=== PATIENT | female | born 1975 | race Caucasian/White ===

== ENCOUNTER 2021-12-19 21:23 | Outpatient (REF) | payer OTHER, SELFPAY ==
[2021-12-19 22:41] LABS: Iron* 115 ug/dL (37-170)
[2021-12-19 22:51] LABS: Percent Iron Saturation 40 % (20-50); Total Iron Binding Capacity 285 ug/dL (265-497)
== END 2021-12-19 21:24 | disposition home or self-care (01) ==
LOC: NPINS 21:23
PROVIDERS: PCP Physician Assistant Medical; Visit Provider Psychiatry & Neurology Neurology
DX: G25.81 Restless legs syndrome (principal)
CPT/HCPCS: 82728; 83540; 83550

== ENCOUNTER 2022-11-27 09:45 | Outpatient (RCR) | payer OTHER, SELFPAY | END 2023-03-27 23:59 | disposition home or self-care (01) | PROVIDERS: PCP Physician Assistant Medical; Visit Provider Orthopaedic Surgery Sports Medicine | DX: M17.11 Unilateral primary osteoarthritis, right knee (principal); Z51.89 Encounter for other specified aftercare | CPT/HCPCS: 97110; 97140; 97161 ==

== ENCOUNTER 2022-11-28 08:18 | Outpatient (CLI) | payer OTHER, SELFPAY | END 2022-11-28 08:19 | disposition home or self-care (01) | PROVIDERS: PCP Physician Assistant Medical; Visit Provider Physician Assistant Medical | DX: Z01.818 Encounter for other preprocedural examination (principal); R73.03 Prediabetes; E66.9 Obesity, unspecified; R79.89 Other specified abnormal findings of blood chemistry; Z13.6 Encounter for screening for cardiovascular disorders; Z13.29 Encounter for screening for other suspected endocrine disorder; Z13.1 Encounter for screening for diabetes mellitus | CPT/HCPCS: 80061; 82728; 84443; 84450; 84460 ==

== ENCOUNTER 2023-04-18 14:49 | Outpatient (CLI) | payer OTHER, SELFPAY ==
--- NOTE | 2023-04-18 15:00 | CRLHL7_ITS ---
For Patients: As a result of the Century Cures Act, medical imaging exams and procedure reports are released immediately into your electronic medical record. You may view this report before your referring provider. If you have questions, please contact your health care provider. INDICATION: Pelvic pain COMPARISON: None available. FINDINGS: Transvaginal and transabdominal ultrasound examination of the female pelvis was performed. Initial examination is performed with transabdominal technique and transvaginal technique is used for better visualization of the pelvic structures. The uterus is anteverted with no evidence of mass. It measures 8.0 x 2.6 x 3.1 cm. The uterine myometrium is mildly heterogeneous, consistent with mild diffuse fibroid degeneration. The endometrial lining is normal in thickness at 4 mm. Incidental note is made of nabothian cysts in the cervix. The ovaries are normal in appearance normal appearing follicular cysts. The ovaries are normal in size, the right measuring 2.8 x 2.3 x 2.4 cm and the left measuring 2.8 x 1.7 x 2.0 cm. There is normal color and pulse doppler flow in both ovaries. There is no sign of free fluid in the pelvis. IMPRESSION: Normal ultrasound examination of the female pelvis using transvaginal and transabdominal technique. Dictated by Wing Vasquez MD @ 04/22/2023 10:13:36 PM (Electronically Signed)
== END 2023-04-18 14:50 | disposition home or self-care (01) ==
LOC: US 14:50
PROVIDERS: PCP Physician Assistant Medical; Visit Provider Physician Assistant
DX: R10.2 Pelvic and perineal pain (principal)
CPT/HCPCS: 76830; 76856; 93976

== ENCOUNTER 2023-06-14 07:06 | Outpatient (CLI) | payer OTHER, SELFPAY ==
--- OUTSIDE RECORDS SUMMARY | 2023-06-14 07:09 | XMS_ITS | Encounter Summary ---
Author Name Unknown Organization [facility] Address [address] [place] [address] Care Team Providers Care Rn Immunology Name Role Phone Nyla Longoria RUPALI Primary Care Provider [phone] Reason for Visit * Reason Comments SKIN LESION New spot on the left lower eye/cheek area presented within the last week. It is scaly, denies tender or bleedingHx :BCCRemind pt to check for phone number Encounter Details Date Type Department Care Team Description 04/04/2023 1:30 PM POLYMERIZATION SUPERVISOR Office Visit [facility] [address] [place], [place] [id number] Nannette Rae MD [address] [place] [address] [id number] Neoplasm of skin (HRC) (Primary Dx) Social History Tobacco Use Types Packs/Day Years Used Date Smoking Tobacco: Never Smokeless Tobacco: Never Sex and Gender Information Value Date Recorded Sex Assigned at Not on file Gender Identity Not on file Sexual Orientation Not on file documented as of this encounter Progress Notes * Nannette Rae MD - 04/04/2023 1:30 PM CST Images from the original note were not included. DERMATOLOGY OFFICE VISIT Last visit: 03/26/2023 Dermatologic History: BCC, right forehead, awaiting Mohs BCC, left upper inner cheek, Mohs 2017 History of bullous eruption on the bilateral lower shins, suspect allergic contact dermatitis Angular cheilitis Seborrheic dermatitis, mild Chief Complaint Patient presents with SKIN LESION New spot on the left lower eye/cheek area presented within the last week. It is scaly, denies tender or bleeding Hx :BCC Remind pt to check for phone number History of Present Illness: Aleida Brooke is a 48 y.o. female who presents for a spot of concern today. She was last seen in Dermatology 03/26/2023 at which time we biopsied a BCC on the R lower forehead. Now, she notes a pink scaly bump on the left nasal sidewall/cheek area near her previous BCC site. Past Medical History, Family History: Reviewed and updated in [facility] Medications: The patient has a current medication list which includes the following prescription(s): cetirizine,cholecalciferol, fluorouracil, fluticasone propionate, gabapentin, ketotifen fumarate, ropinirole, and triamcinolone acetonide. Allergies: The patient is allergic to other. Review of Systems: Generally feels well without other skin concerns today. Physical Examination: General: Well-appearing female, in no distress, alert and oriented. Skin: Examination of the left side of nose was preformed today. Pertinent findings as below. Derm Exam, Assessment and Plan: 1. Neoplasm of skin (HRC) Left Malar Cheek Skin Biopsy (No CPT) Type of biopsy: tangential Timeout: patient name, date of , surgical site, and procedure verified Procedure prep: Patient was prepped and draped in usual sterile fashion Prep type: Isopropyl alcohol Anesthesia: the lesion was anesthetized in a standard fashion Anesthetic: 1% lidocaine w/ epinephrine 1-100,000 local infiltration Hemostasis achieved with: electrodesiccation Outcome: patient tolerated procedure well Post-procedure details: wound care instructions given Follow up: Return to clinic pending bx results, sooner for new concerns. Nannette Rae MD [facility] MERIZATION SUPERVISOR documented in this encounter Plan of Treatment Upcoming Encounters Date Type Department Care Team Description 06/26/2023 2:30 PM POLYMERIZATION SUPERVISOR Appointment [facility] [address] [place] [id number] Nurse Kobi Uribe documented as of this encounter Procedures Procedure Name Priority Date/Time Associated Diagnosis Comments SKIN BIOPSY Routine 04/04/2023 1:38 PM POLYMERIZATION SUPERVISOR Neoplasm of skin (HRC) SURGICAL PATHOLOGY, DERMATOLOGY Routine 04/04/2023 1:38 PM POLYMERIZATION SUPERVISOR Neoplasm of skin (HRC) documented in this encounter Results * Skin Biopsy (No CPT) (04/04/2023 1:38 PM POLYMERIZATION SUPERVISOR) Narrative EXTERNAL RESULTS - 04/04/2023 1:38 PM POLYMERIZATION SUPERVISOR Type of biopsy: tangential ?? Timeout: patient name, date of , surgical site, and procedure verified ?? Procedure prep: ??Patient was prepped and draped in usual sterile fashion Prep type: ??Isopropyl alcohol Anesthesia: the lesion was anesthetized in a standard fashion ?? Anesthetic: ??1% lidocaine w/ epinephrine 1-100,000 local infiltration Hemostasis achieved with: electrodesiccation ?? Outcome: patient tolerated procedure well ?? Post-procedure details: wound care instructions given ?? Nannette Rae MD DERM PROCEDURE ORDER C[facility]ACE EXTERNAL RESULTS * Surgical Path, Dermatology (04/04/2023 1:38 PM POLYMERIZATION SUPERVISOR) Case Report Surgical Pathology Report ? Case: [id number] ? Authorizing Provider: ??Nannette Rae MD ? Collected: ? 04/04/2023 1338 ? Ordering Location: ? [facility] ? Received: ?04/05/2023 1319 ? Pathologist: ? Tc Britt, ? MD ? Specimen: ?Skin, Left Malar Cheek ? 04/15/2023 12:46 PM POLYMERIZATION SUPERVISOR [employer] SUR[employer]Y TAKER 3800 DERMATOLOGY FINAL DIAGNOSIS A. Skin, Left Malar Cheek, shave: - Suppurative folliculitis 04/15/2023 12:46 PM POLYMERIZATION SUPERVISOR PUBLIC OPINION SURVEY TAKER 3800 DERMATOLOGY Clinical Information Clinical Impression: r/o BCC 04/15/2023 12:46 PM POLYMERIZATION SUPERVISOR PUBLIC OPINION SURVEY TAKER 3800 DERMATOLOGY Microscopic Description Microscopic examination is performed. 04/15/2023 12:46 PM POLYMERIZATION SUPERVISOR PUBLIC OPINION SURVEY TAKER 3800 DERMATOLOGY Technical Information A portion of the technical [place] [address]. The professional interpretation was performed at [facility]. 04/15/2023 12:46 PM POLYMERIZATION SUPERVISOR PUBLIC OPINION SURVEY TAKER 3800 DERMATOLOGY Gross Description A: Received in formalin, labeled with the patient's name and Skin, Left Malar Cheek is a 4 x 3 x 1 mm shave biopsy of skin. The specimen is marked with green ink, bisected, and submitted entirely in one cassette. AM 04/15/2023 12:46 PM POLYMERIZATION SUPERVISOR PUBLIC OPINION SURVEY TAKER 3800 DERMATOLOGY Embedded Images 04/15/2023 12:46 PM POLYMERIZATION SUPERVISOR PUBLIC OPINION SURVEY TAKER 3800 DERMATOLOGY Skin (Skin) 04/04/2023 1:38 PM POLYMERIZATION SUPERVISOR 04/05/2023 1:19 PM POLYMERIZATION SUPERVISOR Comment:Clinical Impression: r/o BCC Nannette Rae MD LAB PATHOLOGY [facility] [address] documented in this encounter Visit Diagnoses Diagnosis Neoplasm of skin (HRC)- Primary Neoplasm of unspecified nature of bone, soft tissue, and skin documented in this encounter Care Teams Rn Immunology Relationship Specialty Start Date End Date Nyla Longoria PA-C [address] [place] [address] PCP - General 09/01/15 documented as of this encounter
--- OUTSIDE RECORDS SUMMARY | 2023-06-14 07:09 | XMS_ITS | Encounter Summary ---
Author Name Unknown Organization [facility] Address [address] [place] [address] Care Team Providers Care Salesperson [employer] Name Role Phone KurtisNyla wells RUPALI Primary Care Provider [phone]- [phone] Reason for Visit * Reason Comments BCC (BASAL CELL CARCINOMA) Mohs surgery, right forehead * Consult/Transfer Care (Routine) - New Request Specialty Diagnoses / Procedures Referred By Sherri t Referred To Contact Diagnoses Basal cell carcinoma of face Nannette Rae MD [address] [place] [address] Referral ID Status Reason Start Date Expiration Date V isits Requested Visits Authorized [id number] New Request 04/01/2023 06/30/2024 1 1 Encounter Details Date Type Department Care Team Description 05/07/2023 7:45 AM DRY MAN Office Visit [facility] [address] [place] [address] [id number] Cheyenne Uribe MD [address] [place] [address] Basal cell carcinoma of face (Primary Dx) Social History Tobacco Use Types Packs/Day Years Used Date Smoking Tobacco: Never Smokeless Tobacco: Never Sex and Gender Information Value Date Recorded Sex Assigned at Not on file Gender Identity Not on file Sexual Orientation Not on file documented as of this encounter Patient Instructions * Patient Instructions* Mary Ann Augustine - 05/07/2023 7:45 AM DRY MAN Dermatologic Surgery Wound Care All Patients: Following skin surgery, you can expect: Mild to moderate bruising on or around surgical site Moderate swelling Mild to moderate pain For surgery on the scalp, forehead, religion, eye or nose - bruising and swelling around the eyes is normal and usually lasts for several days. For surgery on the arm, hand, leg and foot - swelling of the hands or feet is normal. Keeping the area elevated and using an arm sling or wrapping with an VALERIA wrap will help to control swelling. Call the office or present to urgent care if you experience any of the following: Constant fever above 101 F Intense pain near surgical site Increased swelling, spreading redness or uncontrolled bleeding Reopening of the wound at any time Yellowish drainage from the wound Bleeding: During the first 24 to 48 hours, a small amount of bleeding around the dressing/bandage may be noticed. You may reinforce the dressing with more tape if needed. Try to avoid removing the dressing even if light bleeding is noticed, since this may lead to even more bleeding. If bleeding or drainage continues or saturates the dressing: Apply firm and direct pressure with a clean cloth or gauze for 20 minutes (set a timer). Do not release pressure to look at bleeding status during this time. If bleeding continues after 20 minutes, apply pressure again for 20 additional minutes. If the bleeding persists, continue the pressure & call our office for further instructions. If bleeding stops, you may add additional gauze over the dressing or change the saturated dressing, securing it in place with tape. Activity: Relax and take it easy for the first 48 hours after surgery and avoid activities that would raise your heart rate or blood pressure. Elevate surgical site (head, neck, arm, leg) on 2-3 pillows when lying or sitting. Use an ice pack over the surgical site for 20 minutes, every 2 hours while awake for the first 24-48 hours. Avoid bending over, reaching, stretching, or lifting greater than 10 lbs. for 2 weeks. NO aerobic exercise for 14 days; brisk walking, gardening, golfing, etc. This type of activity can put your sutures under stress, interfere with healing, and cause bleeding. Avoid prolonged water exposure (swimming or soaking) for 3 weeks or until the wound is healed. Avoid taking non-prescribed aspirin for pain, unless directed to do so by a physician. Tylenol is okay to take (500-650 mg every 4-6 hours as needed) or you may take the prescription pain medication given to you by our physician. DO NOT take Tylenol along with prescription pain medication as this can be damaging to the liver and kidneys and/or possibly lead to an overdose. If you are still having pain, you may also take ibuprofen 400 mg every 4-6 hours as needed as long as it is ok with your primary care and/or other physicians. Avoid drinking alcohol for one week following your procedure. Alcohol increases risk of bleeding. Avoid smoking. Smoking greatly decreases wound healing. IMPORTANT PHONE NUMBERS For any questions concerning your surgical wound site(s), please call the numbers below. If you leave a message, please include your full name, date of , date and office location of surgery, body site, and a brief description of your problem or question: Saturday - Saturday between the hours of 7:30 a.m. and 4:30 p.m., please call Dr. Uribe's Nurse Line: [phone] ALWAYS USE THIS NUMBER DURING BUSINESS HOURS. Dr. Uribe is not in the office on Saturday, but her nurse line is available to answer any questions. For emergency use only on evenings, weekends, and holidays, please call or text Dr. Uribe's mobile number: [phone] We request that you always contact us by phone first, on Dr. Uirbe's Nurse Line, to schedule anappointment if you feel you need to be seen in clinic. Standard Care Instructions Leave the initial pressure dressing/bandage applied in the clinic AND KEEP DRY for 2 days. When it is time to remove the dressing, remove it very gently as not to disrupt the wound and any sutures underneath. Some amount of blood on the dressing is normal. The easiest way to remove the dressing is to let shower water get it wet and loosen the tape. Once the dressing is off, gently wash the wound with warm, soapy water. Apply ointment (clean Vaseline, petrolatum, or Aquaphor) to the incision with a cotton swab (Q-tip)and cover with a small piece of non-adherent gauze (such as Telfa) and tape. Avoid placing tape or adhesive directly over incision. Do not let the area dry out or form a scab, as it can slow healing and create scarring. Perform site care twice per day until the surface of the incision has healed - usually for 2-3 weeks. 4 weeks after surgery: You can start gently massaging the scar area for a few minutes a day. You may apply silicone gel twice a day (ScarAway, Scar Recovery, Biocorneum or Serica gel available at [facility] or online). Protect the healing scar from the sun. Apply sunscreen regularly when outdoors. The sutures will dissolve. MAN documented in this encounter Progress Notes * Cheyenne Uribe MD - 05/07/2023 7:45 AM CST Chief Complaint Patient presents with BCC (BASAL CELL CARCINOMA) Mohs surgery, right forehead S:Aleida Brooke is a 48 y.o. female referred by Dr. Nannette Rae who presents for evaluation and possible surgical treatment of a BCC of the right forehead. Pt reports biopsy site has been healing well. No other lesions of concern. ROS: No fevers/chills. No other skin complaints. PMH: Reviewed in health profile. Medications: Reviewed in patients health profile. The patient has a current medication list which includes the following prescription(s): cetirizine, cholecalciferol, fluorouracil, fluticasone propionate, gabapentin, ketotifen fumarate, ropinirole, and triamcinolone acetonide. Allergies: The patient is allergic to other. OBJECTIVE : Constitutional: Alert, WDWN, cooperative in no acute distress. Biopsy site easily identified and site confirmed by pt and photo Path report was reviewed with pt FINAL DIAGNOSIS - [id number] A. Skin, Right Forehead, shave: - Nodular basal cell carcinoma, present at deep biopsy margin. ASSESSMENT/PLAN: 1. Biopsy proven BCC, right forehead --Pt was educated regarding dx --Discussed all management options with patient, including benefits and risks of each: no treatment, excision and repair, Mohs micrographic surgery --Pt elected Mohs micrographic surgery and understands the risks of scar (including scar widening, hypertrophic/keloid scar, erythematous/hyperpigmented/hypopigmented scar), bleeding, infection, numbness, recurrence, dehiscence, necrosis --Patient would like to go forward with procedure today, which was subsequently done --Please see operative note and consent form for further details F/U 6-8 weeks, sooner PRN. Also follow-up with referring provider per their instructions or sooner prn. MAN * Cheyenne Uribe MD - 05/07/2023 7:45 AM CST Dermatology: Mohs Micrographically Controlled Tumor Extirpation Mohs Surgeon: Cheyenne Uribe M.D. Voltage Tester: Mary Ann Augustine MA Anesthesia: 1% Lidocaine with epinephrine Cancer Type: Nodular Basal Cell Carcinoma Anatomic Site: Right forehead Preoperative Lesion Size: 0.6 cm x 0.5 cm Operation: Mohs micrographically controlled tumor extirpation Indication: anatomic location Final Surgical Defect Size: 0.9 cm x 0.8 cm Skin Preparation: Hibiclens Preoperative Medication(s): none MOHS STAGE I: The nature and purpose of the procedure, associated risks, possible consequences and complications,and alternative forms of treatment were explained in detail. The biopsy site was identified and wasconfirmed by the patient and the photo provided. An informed operative consent and photo permit were obtained. The patient was positioned, prepped, and draped in the usual sterile manner. Local anesthesia was obtained with local anesthetic as listed above. The clinically apparent tumor was then debulked with a curette. A 2 mm rim of normal appearing skin was marked circumferentially around the defect. The area thus outlined was excised deep to reticular dermis and subcutis. Hemostasis was achieved with bipolar electrocoagulation. The specimen was oriented, mapped, subdivided into 2 sections, chromacoded, and submitted for horizontal frozen sections. The patient tolerated the procedure well,no complications were noted, and a pressure dressing was placed. Microscopic tumor was found persisting in none of the specimens. The total number of microscopic sections from all Mohs stages was 2. Cheyenne Uribe MD acted in two separate but integrated capacities as both the surgeon and the pathologist. MOHS DEFECT RECONSTRUCTION PROCEDURE Operation: Intermediate linear closure of Mohs defect described above. Final Linear Closure: 2.9 cm. Various closure modalities were discussed with the patient, and it was decided that an intermediatelinear repair would best preserve normal anatomic and functional relationships. The nature and purpose of the procedure, associated risks, possible complications, and alternative methods of treatmentwere explained to the patient in detail by Cheyenne Uribe MD. An informed operative consent was obtained. The patient was positioned, prepped, and draped in the usual sterile manner. Adequate anesthesia was then obtained by infiltrating local anesthesia as listed above along the edges and at thebase of the defect. The edges of the defect were undermined at the dermal subcutaneous layer approximately 1.0 cm in all directions. The edges could then be opposed without significant tension. Excision of standing tissue cones was performed via triangulation technique. Adequate hemostasis was achieved with bipolar electrocoagulation. The subcutaneous and dermal tissues were opposed and sutured with multiple 4-0 Monocryl sutures. The epidermal edges were then closed with multiple 5-0 fast absorbing gut sutures. The final incision lines were placed with respect for the patient's natural skin tension lines. The surgical site was lightly scrubbed. A Mupirocin ointment, Telfa and gauze pressuredressing was applied to the surgical site. The patient tolerated the procedure well without complications and was given both verbal and written explicit instructions on postoperative wound care and pain management. Follow-up for wound check in 6-8 weeks. Patient was recommended Extra Strength Tylenol per package directions, as needed for mild pain control. The patient was discharged stable from the Dermatology Clinic. [facility] [address] [id number] MAN documented in this encounter Plan of Treatment Upcoming Encounters Date Type Department Care Team Description 06/26/2023 2:30 PM DRY MAN Appointment [facility] [address] [place] [address] Nurse Kobi Uribe Gian Scheduled Referrals Name Type Priority Associated Diagnoses Orde r Schedule Dermatology Surgery/Mohs Consult Adult Referral Routine Basal cell carcinoma of face Ordered: 04/01/2023 documented as of this encounter Visit Diagnoses Diagnosis Basal cell carcinoma of face- Primary Basal cell carcinoma of skin of other and unspecified parts of face documented in this encounter Care Teams Salesperson [employer] Pet Supp[employer] Relationship Specialty Start Date End Date SwatiAugust Josiah, RUPALI [address] [facility] [address] PCP - General 09/01/15 documented as of this encounter
--- OUTSIDE RECORDS SUMMARY | 2023-06-14 07:09 | XMS_ITS | Continuity of Care Document ---
Author Name Unknown Organization [facility] Address [address] [address] [place] [address] Phone Care Team Providers Care Filter Washer And Presser Name Role Phone PawelcariJuliana Fried Unavailable Unavailable Medications Medication Instructions Dosage Effective Dates (start - stop) Status Comments Vitamin D3 25 mcg (1,000 unit) tablet take 1 Tablet by Oral route every day 1 Tablet - Active multivitamin tablet take 1 tablet by oral route every day 1 tablet - Active Zyrtec 10 mg tablet take 1 tablet by oral route every day 10 MG - Active Flonase Allergy Relief 50 mcg/actuation nasal spray,suspension spray 2 sprays by intranasal route every day in each nostril - Active ropinirole 0.5 mg tablet take 1 tablet by oral route 3 times every day 0.5 MG - Active olopatadine 0.1 % eye drops instill 1 drop by ophthalmic route 3 times every day into affected eye(s) as needed - Active hydroxyzine pamoate 50 mg capsule take 1 capsule by oral route every day at bedtime - Active montelukast 10 mg tablet take 1 tablet by oral route every day in the evening 10 MG - Active omeprazole 40 mg capsule,delayed release take 1 capsule by oral route every day before a meal 40 MG - Active FISH OIL (unknown strength) Take 1 capsule by oral route 1-2 times per day as needed Not Available - Active ibuprofen 200 mg tablet take 1 tablet by oral route three times a day as needed - Active MOVE FREE JOINT HEALTH (unknown strength) take 1 tablet by oral route every day as needed Not Available - Active Procedures Procedure Date Offic/outpt E&m Estab Low-mod Routine Serum Collection Hepatic Function Panel Offic/outpt E&m New Mod-hi Routine Serum Collection Bld Ct; Hg/pltlt Ct Auto/compl Comp Metabolic Panel Bilirubin; Direct Gg; Ige Prothrombin Time Gg; Iga, Igd, Igg, Igm, Ea Advance Directives Directive Yes / No Effective Date File Name No Information Encounters Encounter Description Practice Location Reason(s) For Visit Diagnoses Date Provider Providers Copied on Encounter [facility], [address] [address], [place], [place], [id number], [place] tel:[phone] [facility] No Information 1 Miguel Andrews. [address] [facility], [facility] [address], [place], [place], [id number], [place]. tel:[phone] [facility], [address] [address], [place], [place], [address], [place] tel:[phone] [facility] Elevated liver function tests 1 Miguel Andrews. [address] [facility], [facility] [address], [place], [place], [address], [place]. tel:[phone] [facility], [address] [address], [place], [place], [address], [place] tel:[phone] [facility] Fatty liver 1 Miguel Andrews. [address] [facility], [place], [place], [address], [place]. tel:[phone] Offic/outpt E&m Estab Low-mod [facility], [address] [address], [place], [place], [address], tel:[phone] [facility] GI Symptoms or Concerns (chief complaint) Fatty liver 1 Miguel Andrews. [address] [facility] [address], [place], [address], . tel:[phone] Referring Provider: Referral Self, USE FOR SELF REFERRALS. Offic/outpt E&m New Mod-hi [facility], [address] [address], [place], [place], [address], tel:[phone] [facility] GI Symptoms or Concerns (chief complaint) Elevated liver function testsFatty liver 1 Miguel Andrews. [address] [facility] [address], [place], [address], [place]. tel:[phone] Referring Provider: Omar ONEILL, [address], [place], [address]. tel:[phone] [facility], [address] [address], [place], [address], tel:[phone] [facility] No Information 1 Zaria Ruiz. [address] [facility] [address], [place], [id number], . tel:[phone] Family History Family Member Type Diagnosis Age At Onset Daughter Problem (finding) Diabetes mellitus Father Problem (finding) hypertension Mother Problem (finding) hypertension Mother Problem (finding) afib Daughter Problem (finding) Alive and well Sister Problem (finding) Alive and well Son Problem (finding) Alive and well Immunizations Vaccine Date Status Comments SARS-COV-2 (COVID-19) vaccin e, mRNA, spike protein, LNP, preservative free, 100 mcg/0.5mL dose administered Note: [facility] bi-direct ional interface ; Source: Other Registry SARS-COV-2 (COVID-19) vaccin e, mRNA, spike protein, LNP, preservative free, 100 mcg/0.5mL dose administered Note: [facility] bi-direct ional interface ; Source: Other Registry Influenza, injectable, Madin Elvi Canine Kidney, preservative free, quadrivalent administered Note: [facility] bi- directional interface ; Source: Other Registry Afluria Qd administered Note: [facility] bi-directional interface ; Source: Other Registry Engerix-B administered Note: [facility] bi-d irectional interface ; Source: Other Registry Engerix-B administered Note: [facility] bi-d irectional interface ; Source: Other Registry Engerix-B administered Note: [facility] bi-d irectional interface ; Source: Other Registry Afluria Qd administered Note: M [facility] bi-directional interface ; Source: Other Registry Influenza, seasonal, injecta ble, preservative free administered Note: [facility] bi-direct ional interface ; Source: Other Registry influenza, live, intranasal, quadrivalent administered Note: [facility] bi-direct ional interface ; Source: Other Registry tetanus toxoid, reduced diphtheria toxoid, and acellular pertussis vaccine, adsorbed administered Note: [facility] b i-directional interface ; Source: Other Registry Influenza, seasonal, injecta ble, preservative free administered Note: [facility] bi-direct ional interface ; Source: Other Registry Afluria Qd administered Note: M [facility] bi-directional interface ; Source: Other Registry Novel [id number], injectable administered Note: [facility] bi-direct ional interface ; Source: Other Registry tetanus and diphtheria toxoi ds, adsorbed, preservative free, for adult use (2 Lf of tetanus toxoid and 2 Lf of diphtheria toxoid) administered Note: [facility] bi-direct ional interface ; Source: Other Registry Payers Payer name Insurance type Covered republican ID Authoriza tion(s) Preferred One Admin [facility] [id number] Social History Type Description Quantity Date Captured Comments Alcohol Use Details Unknown Caffeine Use Details Unknown Tobacco Use Status No Information Smoking Status No Information Sex Female Chief Complaint And Reason For Visit No Information Reason For Referral Reason For Referral No Information Plan Of Treatment Date Type Action Status Referral Ordered: Hepatic Function Panel Appointment date/timeframe: 12/10/2020 ordered Referral Ordered: Iron/TIBC Appointment date/timeframe: 05/12/2021 ordered Referral Ordered: MRI Elastography WITHOUT And WITH Contrast Appointment date/timeframe: 10/06/2020 ordered Referral Ordered: Liver Biopsy Image Guided Appointment date/timeframe: 10/20/2020 ordered Future Order: Lab Order Antimito chondrial Ab (AMA), Qn ([id number]), Body Site: Left Antecubital Fossa, Ordered on: Ordered History Of Present Illness Encounter Date Complaint History Of Prese nt Illness GI Symptoms or Concerns Aleida lord is a 45-year-old female who presents to clinic for followup regarding elevated liver function tests and fatty liver disease.The patient was initially seen by myself on September 21. She reported that she was noted back in 2018 to have elevated liver function tests. She did undergo an ultrasound of her liver at that time, which showed an echogenic liver likely related to focal fatty infiltration with focal fatty sparing near the gallbladder fossa. She more recently underwent liver function tests in August 2020. They showed an AST of 152 and an ALT of 171. Hepatitis B and C testing was negative. She was found to have an elevated ferritin level of 650. Iron studies were normal.The patient denies any family history of liver disease. She has historically has had 1 to 2 glasses of wine nightly. Her BMI at initial visit was 34.3.Blood work was undertaken which showed improved AST at 58 and ALT at 127. Additionally, blood testing for [id number] autoimmune proc GI Symptoms or Concerns Aleida lord is a 45-year-old female who presents to clinic for consultation at the request of her primary care provider, Omar Moore, regarding elevated liver function tests and fatty liver disease.The patient reports that she was noted back in 2018 to have elevated liver function tests. She did undergo an ultrasound of her liver at that time, which showed an echogenic liver likely related to focal fatty infiltration with focal fatty spearing near the gallbladder fossa. She recently underwent repeat liver function tests in August. Though showed an AST of 152 and an ALT of 171. The patient reports that hepatitis B and C testing were negative. She was found to have an elevated ferritin level of 650. Iron studies were normal.The patient is relatively asymptomatic. She does have recent increased joint pain for which she has been using NSAIDs.The patient denies any family history of liver disease. She does of note drink 1 to 2 glasses of wine nightly. Her BMI is currentl Functional Status Date Functional Assessmen t No Information Instructions Date Instruction Additional Infor mation No Information Assessments Type Assessment Date No Information Patient Care Teams Name Effective Dates (start - stop) Status Members No Information
--- OUTSIDE RECORDS SUMMARY | 2023-06-14 07:09 | XMS_ITS | Clinical Summary ---
Author Name Unknown Organization [email or web address] Address [address] [place] [address] Care Team Providers Care Pipe Chipper Name Role Phone Swati Nyla Josiah RUPALI Primary Care Provider [phone] Source Comments You are receiving this document as you are listed as the primary care provider,follow-up provider, or the patient has been referred to you for consultation.This is in compliance with the Medicare and[facility] EHR Incentive Program,which states Providers who transition their patient to another setting of careor provider of care or refers their patient to another provider of care shouldprovide summary care record for each transition of care or referral. [facility] Allergies Active Allergy Reactions Criticality Noted Date Comments Other Other, see comments 04/03/2016 Cat hair, dust mites, mols and Smuts Medications Medication Sig Dispensed Refills Start Date End Date Status Ketotifen Fumarate (ZADITOR) 0.025 % eye drop solution Place 1 drop into both eyes daily as needed for Other. 0 06/16/2015 Active fluticasone (FLONASE) 50 MCG/ACT nasal solution 2 Sprays by Nasal route daily. 0 06/16/2015 Active cetirizine (ZYRTEC) 10 MG tablet Take 1 Tablet (10 mg) by mouth daily. 0 06/16/2015 Active cholecalciferol (VITAMIN D3) 1000 UNITS tablet Take 1 Tablet (1,000 Units) by mouth daily. 0 Active rOPINIRole (REQUIP) 0.25 MG tablet Take 1 Tablet (0.25 mg) by mouth three times a day. 0 Active fluorouracil (EFUDEX) 5 % cream Wash hands after applying. Avoid sun. Apply to face nightly for 30 nights. Ok to stop early if too sore and scabby. 40 g 0 12/03/2018 Active gabapentin (NEURONTIN) 300 MG capsule Take 1 Capsule (300 mg) by mouth three times a day. 0 Active triamcinolone acetonide (KENALOG) 0.1 % ointmentIndications :Angular cheilitis Mix 1:1 with clotrimazole cream (OTC) and apply to corners of mouth twice daily for flares. Max 2 weeks 15 g 1 03/26/2023 Active Active Problems Problem Noted Date Diagnosed Date IBS (irritable bowel syndrome) 02/04/2020 Restless leg syndrome 02/04/2020 Presbyopia 08/01/2016 Migraine with aura 03/29/2006 Allergic rhinitis 09/12/2000 Encounters Date Type Department Care Team Description 05/08/[address] [address] Cheyenne Uribe MD Post-Op Follow Up Call 05/07/2023 7:45 AM POSITIVE PRINTER OPERATOR Office Visit [address] [address] Cheyenne Uribe MD Basal cell carcinoma of face (Primary Dx) 04/04/2023 1:30 PM POSITIVE PRINTER OPERATOR Office Visit [facility] [address] [place] [address] Nannette Rae MD Neoplasm of skin (HRC) (Primary Dx) 04/04/2023 E-Visit [address] [address] Mychart, Generic Provider 04/02/2023 1:00 PM POSITIVE PRINTER OPERATOR E-Visit [facility] [address] [place] [address] Nannette Rae MD Chief Comp: QUESTIONS, GENERAL 04/02/2023 11:30 AM POSITIVE PRINTER OPERATOR E-Visit [address] [address] Nannette Rae MD Chief Comp: Follow-up, NOS 04/02/[address] [place] [address] Nannette Rae MD Questions 04/01/2023 Telephone [facility] [address] [place] [address] Nannette Rae MD Referral (Mohs - BCC ) 03/26/2023 3:00 PM POSITIVE PRINTER OPERATOR Office Visit [facility] [address] [place] [address] Nannette Rae MD Skin exam, screening for cancer (Primary Dx); Sun-damaged skin; History of basal cell carcinoma; Solar lentigo; Multiple melanocytic nevi; Wallace angioma; Seborrheic keratosis; Neoplasm of skin (HRC); Angular cheilitis; Seborrheic dermatitis from Last 3 Months Social History Tobacco Use Types Packs/Day Years Used Date Smoking Tobacco: Never Smokeless Tobacco: Never Sex and Gender Information Value Date Recorded Sex Assigned at Not on file Gender Identity Not on file Sexual Orientation Not on file Last Filed Vital Signs Vital Sign Reading Time Taken Comments Blood Pressure 132/79 02/04/2020 6:58 PM CDT Pulse 91 02/04/2020 6:58 PM CDT Temperature 36.6 ??C (97.9 ??F) 02/04/2020 6:58 PM CD T Respiratory Rate 16 11/14/2015 8:31 AM CDT Oxygen Saturation 99% 02/04/2020 6:58 PM CDT Inhaled Oxygen Concentration - - Weight 90.7 kg (200 lb) 08/27/2022 8:46 AM CDT Height 162.6 cm (5' 4) 08/27/2022 8:46 AM CDT Body Mass Index 34.33 08/27/2022 8:46 AM CDT Plan of Treatment Upcoming Encounters Date Type Department Care Team Description 06/26/2023 2:30 PM POSITIVE PRINTER OPERATOR Appointment [facility] [address] [place] [address] Nurse Kobi Uribe Health Maintenance Due Date Last Done Comments Cervical Cancer Screening Due 1973 Colon Cancer Screening Plan Due 1973 Diabetes Screening- (based on age and BMI) 1973 Hep C Screening (Preventive Services) 1973 HepB (1) 1973 Mammogram 1973 COVID-19 Vaccine (#1) 1973 HIV Screening (Preventive Services) 1989 Adult Preventive Visit 1991 Cholesterol 2018 Zoster/Shingles (1 of 2) 2023 DTaP/Tdap/Td (3 - Tdap) 11/28/2032 11/29/19 23, 04/18/2012, 11/15/2004 Influenza Completed 02/26/2023, 03/20, 02/21/2021, Additional history exists HepA Aged Out No longer eligi ble based on patient's age to complete this topic Hib Aged Out No longer eligi ble based on patient's age to complete this topic IPV (Polio) Aged Out No longer eligi ble based on patient's age to complete this topic MCV4 Aged Out No longer eligi ble based on patient's age to complete this topic Pneumococcal Aged Out No longer eligi ble based on patient's age to complete this topic Procedures Procedure Name Priority Date/Time Associated Diagnosis Comments SKIN BIOPSY Routine 04/04/2023 1:38 PM POSITIVE PRINTER OPERATOR Neoplasm of skin (HRC) SURGICAL PATHOLOGY, DERMATOLOGY Routine 04/04/2023 1:38 PM POSITIVE PRINTER OPERATOR Neoplasm of skin (HRC) SKIN BIOPSY Routine 03/26/2023 3:31 PM POSITIVE PRINTER OPERATOR Neoplasm of skin (HRC) SURGICAL PATHOLOGY, DERMATOLOGY Routine 03/26/2023 3:31 PM POSITIVE PRINTER OPERATOR Neoplasm of skin (HRC) from Last 3 Months Results * Skin Biopsy (No CPT) (04/04/2023 1:38 PM POSITIVE PRINTER OPERATOR) Only the most recent of2 resultswithin the time period is included. Narrative EXTERNAL RESULTS - 04/04/2023 1:38 PM POSITIVE PRINTER OPERATOR Type of biopsy: tangential ?? Timeout: patient [...] * Surgical Path, Dermatology (04/04/2023 1:38 PM POSITIVE PRINTER OPERATOR) Only the most recent of2 resultswithin the time period is included. Case Report Surgical Pathology Report ? Case: [id number] ? Authorizing Provider: ??Nannette Rae MD ? Collected: ? 04/04/2023 1338 ? Ordering Location: ? [facility] ? Received: ?04/05/2023 1319 ? Pathologist: ? Tc Britt, ? MD ? Specimen: ?Skin, Left Malar Cheek ? 04/15/2023 12:46 PM POSITIVE PRINTER OPERATOR [facility] D[facility] FINAL DIAGNOSIS A. Skin, Left Malar Cheek, shave: - Suppurative folliculitis 04/15/2023 12:46 PM POSITIVE PRINTER OPERATOR [facility] Clinical Information Clinical Impression: r/o BCC 04/15/2023 12:46 PM POSITIVE PRINTER OPERATOR [facility] D[facility] Microscopic Description Microscopic examination is performed. 04/15/2023 12:46 PM POSITIVE PRINTER OPERATOR [facility] D[facility] Technical Information A portion of the technical [place] [address]. The professional interpretation was performed at [facility]. 04/15/2023 12:46 PM POSITIVE PRINTER OPERATOR [facility] DERMATOLOGY Gross Description A: Received in formalin, labeled with the patient's name and Skin, Left Malar Cheek is a 4 x 3 x 1 mm shave biopsy of skin. The specimen is marked with green ink, bisected, and submitted entirely in one cassette. AM 04/15/2023 12:46 PM POSITIVE PRINTER OPERATOR [facility] DERMATOLOGY Embedded Images 04/15/2023 12:46 PM [facility] DERMATOLOGY Skin (Skin) 04/04/2023 1:38 PM POSITIVE PRINTER OPERATOR 04/05/2023 1:19 PM POSITIVE PRINTER OPERATOR Comment:Clinical Impression: r/o BCC Nannette Rae MD LAB PATHOLOGY Performing Organization Address City/State/[facility] Co de Phone Number [facility] LOC[facility] DR[facility] [address] DERMATOLOGY [address] [place] [address], [facility] from Last 3 Months Advance Directives Latest Code Status on File Code Status Date Activated Date Inactivated Comments Full Code 04/05/2016 12:50 PM 04/05/2016 3:30 PM Care Teams Pipe Chipper Relationship Specialty Start Date End Date Swati August Josiah, RUPALI [address] [place], [place] [id number] PCP - General 09/01/15
--- OUTSIDE RECORDS SUMMARY | 2023-06-14 07:09 | XMS_ITS | Clinical Summary ---
Author Name Unknown Organization [facility] Address [address] [place] [address] Care Team Providers Care Door Builder Name Role Phone Omar Moore PA-C Primary Care Provider [phone] Allergies Active Allergy Reactions Criticality Noted Date Comments Cats Difficulty breathing 06/30/2019 Dust Mites Itching 06/30/2019 Mold Itching 07/01/2019 Medications Medication Sig Dispensed Refills Start Date End Date Status fluticasone (FLONASE) 50 MCG/ACT nasal spray [place] 1 spray into both nostrils daily 0 Active cholecalciferol (VITAMIN D3) 1000 units (25 mcg) capsule Take 1 capsule by mouth daily 0 Active cetirizine (ZYRTEC) 10 MG tablet Take 10 mg by mouth every evening 0 Active montelukast (SINGULAIR) 10 MG tablet Take 10 mg by mouth At Bedtime 0 Active hydrOXYzine (VISTARIL) 50 MG capsule Take 1 capsule by mouth nightly as needed 0 08/03/2021 Active gabapentin (NEURONTIN) 300 MG capsule Take 1 capsule by mouth At Bedtime 0 09/15/2021 Active rOPINIRole (REQUIP) 0.5 MG tablet Take 1 tablet by mouth daily In afternoon 0 09/15/2021 Active rOPINIRole (REQUIP) 1 MG tablet Take 1 mg by mouth At Bedtime at bedtime. 0 08/18/2021 Active Multiple Vitamins-Minerals (PRESERVISION AREDS) TABS Take 1 tablet by mouth daily 0 09/19/2021 Active azelastine (ASTELIN) 0.1 % nasal spray [place] 1 spray into both nostrils daily 0 09/14/2021 Active propylene glycol (SYSTANE COMPLETE) 0.6 % SOLN ophthalmic solution Place 1 drop into both eyes daily 0 Active famotidine (PEPCID) 20 MG tablet Take 20 mg by mouth 2 times daily 0 Active Multiple Vitamins-Minerals (WOMENS MULTIVITAMIN) TABS Take 1 tablet by mouth daily 0 Active Misc Natural Products (JOINT HEALTH PO) Take 2 tablets by mouth daily 0 Active vitamin C (ASCORBIC ACID) 500 MG tablet Take 500 mg by mouth daily 0 Active EPINEPHrine (ANY BX GENERIC EQUIV) 0.3 MG/0.3ML injection 2-pack Inject 0.3 mLs (0.3 mg) into the muscle once as needed for anaphylaxis 2 each 3 10/30/2021 Active Active Problems Problem Noted Date Diagnosed Date TIA (transient ischemic attack) 10/29/2021 IBS (irritable bowel syndrome) Restless leg syndrome Social History Tobacco Use Types Packs/Day Years Used Date Smoking Tobacco: Never Smokeless Tobacco: Never Alcohol Use Standard Drinks/Week Comments Yes 0 (1 standard drink = 0.6 oz pur e alcohol) 3-4 PER WEEK Adolescent Education Answer Date Record ed Getting School Help Needed Not on file 02/23 Sex and Gender Information Value Date Recorded Sex Assigned at Not on file Gender Identity Not on file Sexual Orientation Not on file Last Filed Vital Signs Vital Sign Reading Time Taken Comments Blood Pressure 128/75 10/30/2021 9:00 AM CDT Pulse 74 10/30/2021 9:30 AM CDT Temperature 36.7 ??C (98 ??F) 10/30/2021 7:43 AM CDT Respiratory Rate 11 10/30/2021 9:30 AM CDT Oxygen Saturation 95% 10/30/2021 9:30 AM CDT Inhaled Oxygen Concentration - - Weight 90.7 kg (200 lb) 10/29/2021 3:57 PM CDT Height 162.6 cm (5' 4) 10/29/2021 3:57 PM CDT Body Mass Index 34.33 10/29/2021 3:57 PM CDT Plan of Treatment Health Maintenance Due Date Last Done Comments ADVANCE CARE PLANNING 1973 ANNUAL REVIEW OF HM ORDERS 1973 CT COLONOGRAPHY 1973 FIT 1973 FLEX SIG 1973 MAMMO SCREENING 1973 YEARLY PREVENTIVE VISIT 1973 sDNA (Cologuard) 1973 COLONOSCOPY 1983 COLORECTAL CANCER SCREENING 1983 HIV SCREENING 1988 HEPATITIS C SCREENING 1991 PAP 1994 DTAP/TDAP/TD IMMUNIZATION (2 - Td or Tdap) 04/18/2022 04/18/2012, 11/15/2004, 11/11/2004 COVID-19 Vaccine (4 - season) 2023 03/23/2021, 08/10/2020, 07/13/2020 INFLUENZA VACCINE (#1) 2023 , 02/16/2020, 02/16/2020, Additional history exists ZOSTER IMMUNIZATION (1 of 2) 2023 PHQ-2 (once per calendar year) 2023 LIPID 10/29/2026 10/29/2021 HEPATITIS B IMMUNIZATION Completed 018, 05/17/2017, 04/19/2017 HPV IMMUNIZATION Aged Out No longer e ligible based on patient's age to complete this topic IPV IMMUNIZATION Aged Out No longer e ligible based on patient's age to complete this topic MENINGITIS IMMUNIZATION Aged Out No l onger eligible based on patient's age to complete this topic Pneumococcal Vaccine: Pediatrics (0 to 5 Years) and At-Risk Patients (6 to 64 Years) Aged Out No longer eligible based on patient's age to complete this topic RSV MONOCLONAL ANTIBODY Aged Out No l onger eligible based on patient's age to complete this topic Care Teams Door Builder Relationship Specialty Start Date End Date Omar Moore PA-C [facility] [address] [place] [address] PCP - General 10/29/21
--- OUTSIDE RECORDS SUMMARY | 2023-06-14 07:09 | XMS_ITS | Referral Summary ---
Author Name Unknown Organization [facility] Address [address] [place] [address] Care Team Providers Care Fight Manager Name Role Phone Omar Moore PA-C Primary Care Provider [phone] Allergies Active Allergy Reactions Criticality Noted Date Comments Cats Difficulty breathing 06/30/2019 Dust Mites Itching 06/30/2019 Mold Itching 07/01/2019 Medications Medication Sig Dispensed Refills Start Date End Date Status fluticasone (FLONASE) 50 MCG/ACT nasal spray [place] 1 spray into both nostrils daily 0 [...] Active azelastine (ASTELIN) 0.1 % nasal spray [place] 1 spray into both nostrils daily 0 [...] 10/29/2021 3:57 PM CDT Plan of Treatment Not on file Care Teams Fight Manager Relationship Specialty Start Date End Date Omar Moore PA-C [facility] [address] [facility] [place] [address] PCP - General 10/29/21
--- OUTSIDE RECORDS SUMMARY | 2023-06-14 07:09 | XMS_ITS | Encounter Summary ---
Author Name Unknown Organization [facility] Address [address] [place] [address] Care Team Providers Care Tile Edger Name Role Phone Nyla Longoria RUPALI Primary Care Provider [phone]- [phone] Reason for Visit * Reason Comments Post-Op Follow Up Call Encounter Details Date Type Department Care Team Description 05/08/2023 Telephone [facility] [address] [place] [address] Cheyenne Uribe MD [address] [place] [address] Post-Op Follow Up Call Social History Tobacco Use Types Packs/Day Years Used Date Smoking Tobacco: Never Smokeless Tobacco: Never Sex and Gender Information Value Date Recorded Sex Assigned at Not on file Gender Identity Not on file Sexual Orientation Not on file documented as of this encounter Nursing Notes * Aletha Baer RN - 05/08/2023 1:53 PM CST Left message checking on status after Mohs surgery. Provided call back number. ERY CONTAINER TESTER ALUMINUM documented in this encounter Plan of Treatment Upcoming Encounters Date Type Department Care Team Description 06/26/2023 2:30 PM BATTERY CONTAINER TESTER ALUMINUM Appointment [facility] [address] [place], [place] [address] Nurse Kobi Uribe documented as of this encounter Visit Diagnoses Not on filedocumented in this encounter Care Teams Tile Edger Relationship Specialty Start Date End Date Swati August Josiah, RUPALI [address] [place] [address] PCP - General 09/01/15 documented as of this encounter
--- OUTSIDE RECORDS SUMMARY | 2023-06-14 07:09 | XMS_ITS | Clinical Summary ---
Author Name Unknown Organization [facility] Address [place], [place] [address] Care Team Providers Care Foreign Language Interpreter Name Role Phone [facility] Primary Care Provider Unavailabl e Allergies Active Allergy Reactions Criticality Noted Date Comments Cats (Fur, Dander, Saliva) Edema 6 Dust Mites 10/11/2005 House Dust 10/11/2005 Mold Itching 07/01/2019 Medications Medication Sig Dispensed Refills Start Date End Date Status fluticasone (50 mcg per actuation) nasal solution (FLONASE) Inhale 2 Sprays in the nostril(s) once daily. 0 06/16/2015 Active cholecalciferol (VITAMIN D3) 1,000 unit tablet Take 1,000 Units by mouth. 0 Active olopatadine (PATANOL) 0.1 % ophthalmic solutionIndications :Allergic conjunctivitis, bilateral INSTILL 1 DROP INTO BOTH EYES TWICE A DAY 5 mL 0 04/03/2019 Active gabapentin (NEURONTIN) 300 mg capsule Take 300 mg by mouth at bedtime. 0 12/02/2020 Active hydrOXYzine pamoate (VISTARIL) 50 mg capsule TAKE 1 CAPSULE BY MOUTH ONCE DAILY OR AT BEDTIME 0 01/28/2021 Active montelukast (SINGULAIR) 10 mg tablet montelukast 10 mg tablet TAKE 1 TABLET BY MOUTH EVERY DAY IN THE EVENING 0 Active Glucosamine HCl 500 mg tablet 0 12/18/2020 Active famotidine (Pepcid AC) 10 mg tablet 0 Active cetirizine (ZyrTEC) 10 mg tablet 0 Active VITAMINS A,C,Q-MIAL-JFDJMN (Ocuvite PreserVision) 7,160 unit- 113 mg-100 unit tablet Take 1 Tablet by mouth once daily. 0 09/19/2021 Active rOPINIRole (REQUIP) 0.5 mg tablet Take 0.5mg by mouth at 2 pm daily 0 09/19/2021 Active rOPINIRole (REQUIP) 1 mg tablet Take 1mg by mouth 2-3 hours before bedtime. 90 Tablet 3 09/19/2021 Active oxyCODONE (ROXICODONE) 5 mg immediate release tablet Take 1-2 Tablets (5-10 mg) by mouth. every 4 to 6 hours if needed for pain. 6 Tablet 0 09/22/2021 Active cephalexin (Keflex) 500 mg capsule Take 1 Capsule (500 mg) by mouth 2 times daily. Begin day of surgery and take until gone. 3 Capsule 0 09/22/2021 Active oxyCODONE (ROXICODONE) 5 mg immediate release tablet Take 1-2 Tablets (5-10 mg) by mouth. every 4 to 6 hours if needed for pain. 10 Tablet 0 12/07/2022 Active cephalexin (KEFLEX) 500 mg capsule Take 1 Capsule (500 mg) by mouth two times daily. 2 Capsule 0 12/07/2022 Active Active Problems Problem Noted Date Diagnosed Date Insomnia, idiopathic 09/19/2021 IBS (irritable bowel syndrome) 02/04/2020 Restless leg syndrome 02/04/2020 Increased frequency of urination 06/09/2019 Chronic interstitial cystitis 06/09/2019 Presbyopia 08/01/2016 Migraine with aura, without mention of intractable migraine without mention of status migrainosus 03/29/2006 ALLERGIES 09/12/2000 Immunizations Name Administration Dates Next Due Hepatitis B (Adult) 08/21/2017,05/17/2017,2016 Influenza A (H1N1), Inactiva sabine (Age >=3 Years) 04/07/2009 Influenza, IIV3 (Age 6-35 mos) 02/11/2015,2010 Influenza, IIV3 (Age >=3 years) 02/21/2021,03/02 Influenza, IIV4 02/06/2019,02/20/2016,04/07/2009 Influenza,CCIIV4 PRESERV FREE 02/16/2020 Influenza,LAIV4 Live Intranasal (Flumist) 2012 Td (Age >=7 Years) 11/15/2004 Tdap 04/18/2012 Family History Medical History Relation Name Comments Other Daughter retinal detachm ent and blindness Diabetes Father Good Health Mother Cancer-breast Paternal Grandmother Diabetes Paternal Grandmother Relation Name Status Comments Daughter Father Mother Paternal Grandmother Social History Tobacco Use Types Packs/Day Years Used Date Smoking Tobacco: Never Smokeless Tobacco: Never Alcohol Use Standard Drinks/Week Comments Not Asked 0 (1 standard drink = 0.6 oz pure alcohol) Alcoholic Drinks/day: infrequent <2 per week Social Connections Answer Date Recorded Frequency of Communication with Friends and Fami ly Not on file 09/19/2021 Sex and Gender Information Value Date Recorded Sex Assigned at Not on file Gender Identity Not on file Sexual Orientation Not on file Obstetrics History Last Filed Vital Signs Vital Sign Reading Time Taken Comments Blood Pressure 110/78 09/19/2021 1:33 PM CDT Pulse 78 09/19/2021 1:33 PM CDT Temperature 36.8 ??C (98.3 ??F) 09/19/2021 1:33 PM CD T Respiratory Rate 16 11/15/2004 12:00 AM CDT Oxygen Saturation 96% 09/19/2021 1:33 PM CDT Inhaled Oxygen Concentration - - Weight 93.9 kg (207 lb) 09/19/2021 1:33 PM CDT Height 161.7 cm (5' 3.66) 09/19/2021 1:33 PM CD T Body Mass Index 35.91 09/19/2021 1:33 PM CDT Plan of Treatment Health Maintenance Due Date Last Done Comments Depression screening for age 12+ 1985 HIV for age 15-65 1988 Hepatitis C screening for age 18-79 1991 Colonoscopy through age 75 2018 Lipids for age 45-75 2018 11/15/2006, 08/26/19 03 Mammogram for age 45-75 2018 Tetanus booster 04/18/2022 04/18/2012, 11/15/2004 BMI (ht and wt on same day) for age 18+ 09/19/2022 09/19/2021 COVID-19 vaccine series ( season) 2023 04/04/2022, 03/23/2021, 08/10/2020, Additional history exists Influenza for age 50-64 2023 02/22/20, 02/16/2020, 02/06/2019, Additional history exists Zoster (shingles) series for age 50+ (1 of 2) 2023 Pap test for age 21-65 03/30/2024 , 03/30/2021, 2015, Additional history exists Tdap Completed 04/18/2012 Pneumococcal series for age 6-64 Aged Out No longer eligible based on patient's age to complete this topic Care Teams Foreign Language Interpreter Relationship Specialty Start Date End Date [facility] [place] PCP - General 02/14/18
--- OUTSIDE RECORDS SUMMARY | 2023-06-14 07:09 | XMS_ITS | Encounter Summary ---
Author Name Unknown Organization [facility] Address [address] [place] [address] Care Team Providers Care Team Automobile Assembler Name Role Phone Swati Nyla Josiah ZAPIEN Primary Care Provider [phone]- [phone] Encounter Details Date Type Department Care Team Description 04/04/2023 E-Visit [facility] [address] [facility] [address] [place] [address] Mychart, [place] [address] Social History Tobacco Use Types Packs/Day Years Used Date Smoking Tobacco: Never Smokeless Tobacco: Never Sex and Gender Information Value Date Recorded Sex Assigned at Not on file Gender Identity Not on file Sexual Orientation Not on file documented as of this encounter Plan of Treatment Upcoming Encounters Date Type Department Care Team Description 06/26/2023 2:30 PM MACHINE FANCY STITCHER Appointment [facility] [address] [place] [address] Nurse Kobi Uribe documented as of this encounter Visit Diagnoses Not on filedocumented in this encounter Care Teams Team Automobile Assembler Relationship Specialty Start Date End Date Swati August RUPALI Rahman [address] [place], [place] [id number] PCP - General 09/01/15 documented as of this encounter
--- OUTSIDE RECORDS SUMMARY | 2023-06-14 07:10 | XMS_ITS | Encounter Summary ---
Author Name Unknown Organization [facility] Address [address] [place] [address] Care Team Providers Care Senior Interior Designer Name Role Phone Swati Nyla Josiah RUPALI Primary Care Provider [phone]- [phone] Encounter Details Date Type Department Care Team Description 02/14/2023 jayme Dalton [phone] Social History Tobacco Use Types Packs/Day Years Used Date Smoking Tobacco: Never Smokeless Tobacco: Never Sex and Gender Information Value Date Recorded Sex Assigned at Not on file Gender Identity Not on file Sexual Orientation Not on file documented as of this encounter Progress Notes * FAMILY MEDICINEJAYME PROVIDER - 02/14/2023 11:55 AM CDT jayme Treatment Plan Diagnosis Sinusitis Visit Date February 14, 2023 Aleida Brooke Date of : 71 Provider Cinda Floyd, Nurse Practitioner Note From Provider Gentry Shin! I?? sorry to hear that you are not feeling well. I??e sent a prescription for an antibiotic to your pharmacy. To help relieve your symptoms while your antibiotics start to work, I recommend taking 800 mg of ibuprofen every 8 hours around the clock for the next 3 days. I also recommend taking over the counter Mucinex and drinking extra fluids to promote drainage. Please read through the treatment plan I??e put together for you below for additional instructions. If you have any questionsor concerns, please submit a Follow Up Request at any time. Feel better soon! NANCY Loo Treatment Plan Since you have a bacterial infection, let?? try an antibiotic. I??e prescribed high dose amoxicillin, which the latest evidence recommends as the best and safest antibiotic to clear up your bacterialinfection faster. I??e also included an antifungal medication in case you develop a yeast infection. I sent your prescriptions to [facility]. I??e also listed a few self-care tips to soothe your symptoms. If your symptoms don't improve after 4 days, or if you have questions, select Help to Request a Follow-up and we'll adjust your treatment for free. Order(s) amoxicillin 500 mg capsule Take 2 capsule three times a day as directed for 7 days Note: Refills: None fluconazole 150 mg tablet Take 1 tablet by mouth single dose as directed Note: Repeat in 3 days if symptoms persist Refills: None Sent To: [facility]/pharmacy [address] [place] [address] Treatment Plan Self Care Tip Topics Inflammation Relief with Ibuprofen Avoid Decongestants and Antihistamines Relieve Facial Pressure with Nasal Steroids How to Take Your Nasal Steroid Warm Packs Steam Therapy Irrigate Your Sinuses Yeast Infection Prescription What to Expect Our goal is to treat the infection and to reduce the inflammation of your sinus tissues to promote drainage. This will make you feel better quickly. If you follow the recommendations I made on the Treatment tab, your symptoms should begin to improve in 4 days of following this treatment plan. If your symptoms haven?? improved after 4 days, select Help to Request a Follow-up and we??l discuss nextsteps. What to Watch Out For Give us a call immediately if you experience: ??? Vision changes ??? Redness and swelling of the eyes or face ??? Increasing congestion ??? Worsening pain ??? High fevers My Conditions, Orders, Allergies as of February 14, 2023 Standard condition list Restless leg Allergic Rhinitis (allergies) Current orders fluconazole (fluconazole) amoxicillin (amoxicillin) fluconazole (fluconazole) fluticasone propionate (fluticasone propionate) gabapentin (gabapentin) Zyrtec (cetirizine) montelukast (montelukast) Allergies None [facility] [employer] We are an online clinic open 10/12. If you have any questions or comments about this visit, please call or email [email or web address] documented in this encounter Plan of Treatment Upcoming Encounters Date Type Department Care Team Description 06/26/2023 2:30 PM SANDBLAST CARVER Appointment [facility] [address] [place] [address] Nurse Kobi Uribe documented as of this encounter Visit Diagnoses Not on filedocumented in this encounter Care Teams Senior Interior Designer Relationship Specialty Start Date End Date SwatiAugust Josiah, RUPALI [address] [place] [address] PCP - General 09/01/15 documented as of this encounter
--- OUTSIDE RECORDS SUMMARY | 2023-06-14 07:10 | XMS_ITS | Encounter Summary ---
Author Name Unknown Organization [facility] Address [address] [facility] [place] [address] Care Team Providers Care Line Worker Name Role Phone Nyla Longoria RUPALI Primary Care Provider [phone]- [phone] Reason for Visit * Reason Onset Date Comments QUESTIONS, GENERAL Entered autom atically based on patient selection in [facility]. Clinical Question - Miscellaneous 04/02/2023 Encounter Details Date Type Department Care Team Description 04/02/2023 1:00 PM BELLOWS FILLER E-Visit [facility] [address] [place] [address] Nannette Rae MD [address] [place] [address] Chief Comp: QUESTIONS, GENERAL Social History Tobacco Use Types Packs/Day Years Used Date Smoking Tobacco: Never Smokeless Tobacco: Never Sex and Gender Information Value Date Recorded Sex Assigned at Not on file Gender Identity Not on file Sexual Orientation Not on file documented as of this encounter Nursing Notes * Aarti Smyth LPN - 04/03/2023 8:19 AM CST Left message and scheduled with Dr. Rae 04/04/2023 @ 1:30 pm OWS FILLER * Aarti Smyth LPN - 04/03/2023 7:48 AM CST Please advise. OWS FILLER * Kristi Armstrong RN - 04/02/2023 2:37 PM CST eVisit Assessment Name of sender: Aleida Martinez message: I was just in less than 7 days and had a biopsy on a spot on my face that came back as basal cell. 2 days ago a new spot showed up by the side of my nose. It seems to look the same but much smaller. I want to see if I can get it biopsy done so I could have both spots taken care of at same time for mohs surgery. If so can I come in right away to have a biopsy done- now I'm worried about this jeanie. PHOTOS attached: yes Background: Last seen for skin check, hx of BCC Action needed from clinician: Please review eVisit to determine next steps. Departmental options for responding to eVisits include recommending an in-person visit, recommending a video visit, or completing the eVisit. Pharmacy updated in Meds/Orders:yes Call Back Number if needed: [phone] Last Visit Maximum visits displayed: 1 Date Type Department Provider Description 03/26/2023 Office Visit [facility] Nannette Rae MD Skin exam, screening for cancer (Primary Dx); Sun-damaged s... Follow-up interval per last visit note: Return to clinic pending biopsy results, sooner for new concerns. Date(s) of failed/cancelled Derm appt: no There are no future appointments scheduled for this specialty. OWS FILLER documented in this encounter Plan of Treatment Upcoming Encounters Date Type Department Care Team Description 06/26/2023 2:30 PM BELLOWS FILLER Appointment [facility] [address] [place] [address] Nurse Kobi Uribe documented as of this encounter Visit Diagnoses Not on filedocumented in this encounter Care Teams Line Worker Relationship Specialty Start Date End Date Nyla Longoria PA-C [address] [place] [address] PCP - General 09/01/15 documented as of this encounter
--- OUTSIDE RECORDS SUMMARY | 2023-06-14 07:10 | XMS_ITS | Encounter Summary ---
Author Name Unknown Organization Formerly [facility] Address [address] [place] [address] Care Team Providers Care Sales Communications Manager Name Role Phone Nyla Longoria RUPALI Primary Care Provider +1- [phone] Reason for Referral * Therapies (Routine) - New Request Specialty Diagnoses / Procedures Referred By Sherri spivey Referred To Contact Diagnoses Acute pain of right knee Anita Arzate DO [address] [facility] [place] [address] Referral ID Status Reason Start Date Expiration Date V isits Requested Visits Authorized [id number] New Request 08/27/2022 08/27/2023 999 999 Scheduling Instructions Your clinician has recommended an appointment with [facility]. You can quickly make your appointment online at [facility]/schedule. You can also call [phone] for help scheduling your appointment. We suggest you call your health insurance company about your coverage and benefits for this appointment. Question Answer Appointment Urgency? Non-Urgent Requested Services Evaluate and treat May use saline for irrigation or cleansing Yes RFV/Clin Data R knee strain dexamethasone use Yes May check glucose per protocol (see policy link below) or if patient has symptoms? Yes * Procedure/Equipment (Routine) - Incomplete Specialty Diagnoses / Procedures Referred By Contbritta spivey Referred To Contact Diagnoses Acute pain of right knee Procedures XR Knee Lt 1-2 Views Comparison Anita Arzate DO [address] [facility] [place] [address] Referral ID Status Reason Start Date Expiration Date V isits Requested Visits Authorized [id number] Incomplete 08/27/2022 11/26/2023 1 1 * Procedure/Equipment (Routine) - Incomplete Specialty Diagnoses / Procedures Referred By Contac t Referred To Contact Diagnoses Acute pain of right knee Procedures XR Knee Rt 3 Views Anita Arzate, DO [address] [place] [address] Referral ID Status Reason Start Date Expiration Date V isits Requested Visits Authorized [id number] Incomplete 08/27/2022 11/26/2023 1 1 Reason for Visit * Reason Comments Knee Pain or Injury -COURT: Unknown -R kne e pain x 4 weeks- mostly in back of knee and sides -has a torn meniscus in L knee -has pain in R knee mostly at night Encounter Details Date Type Department Care Team Description 08/27/2022 8:30 AM CDT Office Visit [facility] [address] [place] [address] Anita Arzate, DO [address] [facility] [address] [place] [id number] Acute pain of right knee (Primary Dx) Social History Tobacco Use Types Packs/Day Years Used Date Smoking Tobacco: Never Smokeless Tobacco: Never Sex and Gender Information Value Date Recorded Sex Assigned at Not on file Gender Identity Not on file Sexual Orientation Not on file documented as of this encounter Last Filed Vital Signs Vital Sign Reading Time Taken Comments Blood Pressure - - Pulse - - Temperature - - Respiratory Rate - - Oxygen Saturation - - Inhaled Oxygen Concentration - - Weight 90.7 kg (200 lb) 08/27/2022 8:46 AM CDT Height 162.6 cm (5' 4) 08/27/2022 8:46 AM CDT Body Mass Index 34.33 08/27/2022 8:46 AM CDT documented in this encounter Patient Instructions * Patient Instructions* Fadia Balderas ATC - 08/27/2022 8:30 AM CDT Thank you for choosing [facility] for your health care visit today. Anita Arzate DO Medication Requests: Prescriptions are filled on Weekdays before 3:00PM For all medication refills: Request a refill using MyChart or contact your Pharmacy Paperwork Requests: FMLA or disability paperwork can be faxed to: [phone] Please allow 7-10 business days for completion of all paperwork. [employer]: E-mail Address: [email or web address] What is Know Your Cost? Know Your Cost is a service for patients and patient/members to call and receive personalized cost information and estimates across our care group. The phone number is (COST) Saturday - Saturday 8 AM to 5 PM To request copies of your medical records, call: [phone] (option 4) Diagnosis: R knee strain Plan: Follow Up: As needed if symptoms are not improving or worsen. Physical Therapy: Our physical therapist will see you today. Subsequent appointments can be made bycalling [phone]. Medications: Over the Counter Medications: Acetaminophen (Tylenol) Ibuprofen (Motrin) taken per bottle instructions unless specified by physician. RICE: - Utilize ice over the injured area (ice bag or bag of frozen vegetables) several times per day for up to 20 minutes at a time. Be sure to place a cold wet wash cloth or towel between the ice and your skin. - Avoid activities that cause pain. If you have any questions regarding your visit or next steps, please contact us at [phone]. documented in this encounter Progress Notes * Anita Arzate DO - 08/27/2022 8:30 AM CDT Aleida Brooke [id number] 1975 [facility] 08/27/2022 History of Present Illness: Aleida Brooke is a 47 y.o. female who presents for evaluation of right knee pain. Patient notes about 4 weeks ago her knee started to bother her more on the medial and posterior aspect of her knee. The last 3 nights has been worse as she is been having a very difficult time with sleep. She has pain with weight- bearing as well as stairs. Has been working on increasing her walking and also took a long road trip with her son to sampler pickup a boat. She denies any swelling, catching, locking or buckling.No previous knee injuries. Has been ice and ibuprofen. ROS: Pertinent positives are noted in HPI, otherwise complete 9 point review of systems negative. Past medical, family, surgical and social history were reviewed and pertinent information noted in HPI. Physical Exam: Gen: No acute distress CV: Pulses normal Psych: Pleasant and cooperative Neuro: Grossly intact. No focal deficits. Right knee: No effusion. Tenderness over the MCL, pes anserine as well as in the distal hamstring/proximal calf tendons. Full range of motion. Negative varus/valgus stress. Negative Elaine and posterior drawer. Negative Beni. No pain over the patellar facets. Imaging: Radiographs of the right knee (08/27/22): No acute fracture. Minimal medial compartment narrowing, left worse than right. I independently reviewed and interpreted the imaging studies above; the results were discussed withthe patient. Assessment/Plan: Right knee pain, likely secondary to MCL strain, pes anserine bursitis distal hamstring/proximal calf tendinitis Patient presenting with 4 weeks of pain that is worsened in the last few days. No acute injury, butdid go on a recent road trip and has been trying to increase her activity. We discussed likely moreextra-articular pathology. She has no mechanical or other red flags to suggest the need for advanced imaging. X-rays reviewed. For now we discussed continuing her conservative measures with duig-rxe-hlrzikf medications, ice/heat and her knee sleeve. Formal physical therapy order was placed. We willplan to see her back if her symptoms worsen or do not improve. Total time of 40 minutes was spent with the patient discussing history, results and treatment plan.This does include non wlnn-aj-spth time. Anita Arzate DO documented in this encounter Plan of Treatment Upcoming Encounters Date Type Department Care Team Description 06/26/2023 2:30 PM SALES TRAINING REPRESENTATIVE Appointment [facility] [address] [place], [place] [phone] Nurse Kobi Uribe Scheduled Referrals Name Type Priority Associated Diagnoses Orde r Schedule Physical Therapy Referral Routine Acute pain of right knee Ordered: 08/27/2022 documented as of this encounter Results * XR Knee Rt 3 Views (08/27/2022 9:00 AM CDT) Anatomical Region Laterality Modality Lower Extremity, Knee Digital Ra diography 08/27/2022 8:52 AM CDT Impressions 08/27/2022 9:44 AM CDT COMPARISON: ??None. FINDINGS: ?? Right knee: No significant joint space narrowing. Lateral view of the right knee demonstrates a trace joint effusion. No fracture. Left knee: There is mild medial compartment degenerative arthritis in the left knee. No fracture. Narrative Procedure Note Jordan Riley MD - 08/27/2022 IMPRESSION COMPARISON: None. FINDINGS: Right knee: No significant joint space narrowing. Lateral view of theright knee demonstrates a trace joint effusion. No fracture. Left knee: There is mild medial compartment degenerative arthritis in theleft knee. No fracture. Anita Arzate DO RAD GD * XR Knee Lt 1-2 Views Comparison (08/27/2022 9:00 AM CDT) Anatomical Region Laterality Modality Lower Extremity, Knee Digital Ra diography 08/27/2022 8:52 AM CDT Impressions 08/27/2022 9:44 AM CDT COMPARISON: ??None. FINDINGS: ?? Right knee: No significant joint space narrowing. Lateral view of the right knee demonstrates a trace joint effusion. No fracture. Left knee: There is mild medial compartment degenerative arthritis in the left knee. No fracture. Narrative Procedure Note Jordan Riley MD - 08/27/2022 IMPRESSION COMPARISON: None. FINDINGS: Right knee: No significant joint space narrowing. Lateral view of theright knee demonstrates a trace joint effusion. No fracture. Left knee: There is mild medial compartment degenerative arthritis in theleft knee. No fracture. Anita BARAHONA GD documented in this encounter Visit Diagnoses Diagnosis Acute pain of right knee- Primary Acute pain of right knee Acute pain of right knee documented in this encounter Care Teams Sales Communications Manager Relationship Specialty Start Date End Date Swati August Josiah, [place] [address] [place] [address] PCP - General 09/01/15 documented as of this encounter
--- OUTSIDE RECORDS SUMMARY | 2023-06-14 07:10 | XMS_ITS | Encounter Summary ---
Author Name Unknown Organization [facility] Address [address] [facility] [place] [address] Care Team Providers Care Nurse Esthetician Name Role Phone Swati Nyla Josiah RUPALI Primary Care Provider [phone]- [phone] Encounter Details Date Type Department Care Team Description 10/17/2022 jayme Dalton [phone] Social History Tobacco Use Types Packs/Day Years Used Date Smoking Tobacco: Never Smokeless Tobacco: Never Sex and Gender Information Value Date Recorded Sex Assigned at Not on file Gender Identity Not on file Sexual Orientation Not on file documented as of this encounter Progress Notes * FAMILY MEDICINEJAYME PROVIDER - 10/17/2022 2:49 PM CDT jayme Treatment Plan Diagnosis Sinusitis with Ear Pain Visit Date October 17, 2022 Aleida Brooke Date of : 71 Provider Kellen Borrero, Nurse Practitioner Note From Provider Gentry Shin,Thank you for talking with me today! I?? sorry to hear that you are not feeling well. I??e sent a prescription for an antibiotic and nasal spray to your pharmacy. I have also sent a prescription for an anti fungal medication to use if you develop symptoms of a yeast infection from the antibiotics. To also help relieve your symptoms while your antibiotics start to work, I recommend taking 8 00 mg of ibuprofen every 8 hours around the clock for the next 3 days. Please read through the treatment plan I??e put together for you below for additional instructions. If you have any questions orconcerns, please submit a Follow Up Request at any time. Feel better soon!Take care,DOROTHY Spencer Treatment Plan Since you have a bacterial infection, let?? try an antibiotic. I??e added a prescription nasal steroid to reduce your pain and inflammation. The antibiotic and nasal steroid will work effectively on both your sinus and ear symptoms. I??e also included an antifungal medication in case you develop a yeast infection. I sent your prescriptions to [facility]/pharmacy. I??e also listed a few self-care tips toreduce inflammation and soothe your symptoms while the antibiotic kills the bacteria. If your symptoms don?? improve after 4 days, or if you have questions, please select Help to Request a Follow-up and we??l adjust your treatment for free. Order(s) amoxicillin 500 mg capsule Take 2 capsule three times a day as directed for 7 days Note: Refills: None fluticasone propionate 50 mcg/actuation spray,suspension [place] 1-2 spray into both nostrils once a day as directed Note: Refills: 2 fluconazole 150 mg tablet Take 1 tablet by mouth single dose as directed Note: Repeat in 3 days if symptoms persist Refills: None Sent To: [facility]/pharmacy [address] [place] [address] Treatment Plan Self Care Tip Topics Ease Sinus Inflammation and Ear Pain with Nasal Steroids Inflammation Relief with Ibuprofen Yeast Infection Prescription What to Expect Our goal is to treat the infection and reduce inflammation in order to promote drainage to ease your sinus and ear pain. Reducing inflammation will make you feel better quickly. If you follow the recommendations I made in the Treatment section, your symptoms should begin to improve in 4 days of following this treatment plan. If your symptoms haven?? improved after 4 days, select Help to Request aFollow-up and we??l discuss next steps. What to Watch Out For Give us a call immediately if you experience: ??? Vision changes ??? Redness and swelling of the eyes or face ??? Increasing congestion ??? Worsening pain ??? High fevers ??? Persistent or worsening ear pain ??? Bloody or foul-smelling ear drainage ??? Skull pain behind your ear ??? Hearing loss ??? Difficulty swallowing My Conditions, Orders, Allergies as of October 17, 2022 Standard condition list Restless leg Allergic Rhinitis (allergies) Current orders fluconazole (fluconazole) fluticasone propionate (fluticasone propionate) amoxicillin (amoxicillin) fluconazole (fluconazole) gabapentin (gabapentin) Zyrtec (cetirizine) montelukast (montelukast) fluticasone (fluticasone) Allergies None [facility] Information [facility] We are an online clinic open 10/12. If you have any questions or comments about this visit, please call or email [email or web address]. documented in this encounter Plan of Treatment Upcoming Encounters Date Type Department Care Team Description 06/26/2023 2:30 PM BLEACH ANALYST Appointment [facility] [address] [place] [id number] Nurse Kobi Uribe documented as of this encounter Visit Diagnoses Not on filedocumented in this encounter Care Teams Nurse Esthetician Relationship Specialty Start Date End Date Nyla Longoria, [place] [address] [place] [address] PCP - General 09/01/15 documented as of this encounter
--- OUTSIDE RECORDS SUMMARY | 2023-06-14 07:10 | XMS_ITS | Encounter Summary ---
Author Name Unknown Organization [facility] Address [address] [facility] [place] [address] Care Team Providers Care Ornamental Ironworker Name Role Phone Nyla Longoria RUPALI Primary Care Provider +1- [phone] Reason for Visit * Procedure/Equipment (Routine) - Incomplete Specialty Diagnoses / Procedures Referred By Contbritta t Referred To Contact Diagnoses Acute pain of right knee Procedures XR Knee Lt 1-2 Views Comparison Anita Arzate DO [address] [facility] [place] [address] Referral ID Status Reason Start Date Expiration Date V isits Requested Visits Authorized [id number] Incomplete 08/27/2022 11/26/2023 1 1 Encounter Details Date Type Department Care Team Description 08/27/2022 9:00 AM CDT [facility] [place] [address] [facility] [address] [place] [address] Anita Arzate DO [address] [facility] [place] [address] Acute pain of right knee Social History Tobacco Use Types Packs/Day Years Used Date Smoking Tobacco: Never Smokeless Tobacco: Never Sex and Gender Information Value Date Recorded Sex Assigned at Not on file Gender Identity Not on file Sexual Orientation Not on file documented as of this encounter Plan of Treatment Upcoming Encounters Date Type Department Care Team Description 06/26/2023 2:30 PM DIRECTOR OF INSTRUCTION Appointment [facility] [address] [place] [address] Nurse Kobi Uribe documented as of this encounter Procedures Procedure Name Priority Date/Time Associated Diagnosis Comments XR KNEE LT 1-2 VIEWS COMPARISON Routine 08/27/2022 9:00 AM CDT Acute pain of right knee documented in this encounter Results * XR Knee Rt [...] theleft knee. No fracture. Anita BARAHONA GD * XR Knee Lt 1-2 Views [...] Visit Diagnoses Diagnosis Acute pain of right knee Acute pain of right knee documented in this encounter Care Teams Ornamental Ironworker Relationship Specialty Start Date End Date SwatiAugust Josiah, [place] [address] [place] [address] PCP - General 09/01/15 documented as of this encounter
--- OUTSIDE RECORDS SUMMARY | 2023-06-14 07:10 | XMS_ITS | Encounter Summary ---
Author Name Unknown Organization [facility] Address [address] [facility] [place] [address] Care Team Providers Care Assistant At Surgery Name Role Phone Nyla Longoria RUPALI Primary Care Provider +1- [phone] Reason for Visit * Procedure/Equipment (Routine) - Incomplete Specialty Diagnoses / Procedures Referred By Sherri t Referred To Contact Diagnoses Acute pain of right knee Procedures XR Knee Rt 3 Views Anita Arzate, DO [address] [facility] [place] [address] Referral ID Status Reason Start Date Expiration Date V isits Requested Visits Authorized [id number] Incomplete 08/27/2022 11/26/2023 1 1 Encounter Details Date Type Department Care Team Description 08/27/2022 8:55 AM CDT Ancillary Procedure [facility] [place] [address] Radiology [address] [place] [address] Anita Arzate, DO [address] [facility] [place] [id number] Acute pain of right knee Social History Tobacco Use Types Packs/Day Years Used Date Smoking Tobacco: Never Smokeless Tobacco: Never Sex and Gender Information Value Date Recorded Sex Assigned at Not on file Gender Identity Not on file Sexual Orientation Not on file documented as of this encounter Plan of Treatment Upcoming Encounters Date Type Department Care Team Description 06/26/2023 2:30 PM DRAW FIRE OPERATOR Appointment [facility] [address] [place] [address] Nurse Kobi Uribe documented as of this encounter Procedures Procedure Name Priority Date/Time Associated Diagnosis Comments XR KNEE RT 3 VIEWS Routine 08/27/2022 9: 00 AM CDT Acute pain of right knee [...] knee documented in this encounter Care Teams Assistant At Surgery Relationship Specialty Start Date End Date Swati Nyla Josiah, RUPALI [address] [place] [address] PCP - General 09/01/15 documented as of this encounter
--- OUTSIDE RECORDS SUMMARY | 2023-06-14 07:10 | XMS_ITS | Encounter Summary ---
Author Name Unknown Organization [facility] Address [address] [place] [address] Care Team Providers Care Education Instructor Name Role Phone Nyla Longoria RUPALI Primary Care Provider +1- [phone] Reason for Visit * Reason Comments Questions Encounter Details Date Type Department Care Team Description 04/02/2023 Telephone [place] [id number] D[facility]ology [address] [place], [place] [id number] Nannette Rae MD [address] [place] [address] Questions Social History Tobacco Use Types Packs/Day Years Used Date Smoking Tobacco: Never Smokeless Tobacco: Never Sex and Gender Information Value Date Recorded Sex Assigned at Not on file Gender Identity Not on file Sexual Orientation Not on file documented as of this encounter Nursing Notes * Mery Styles, RN - 04/02/2023 8:48 AM CST LV 03/26 Pt has a pending derm surgery referral. Since her last visit she has noticed a small bump in or near her scar from previous mohs surgery. If it is another skin cancer she would like to have it done with the lesion on her forehead. I suggested she take a photo and create an e visit to her doctor for review. Pt agrees with this plan PER FELLER documented in this encounter Plan of Treatment Upcoming Encounters Date Type Department Care Team Description 06/26/2023 2:30 PM STUMPER FELLER Appointment [facility] [address] [place] [address] Nurse Kobi Uribe documented as of this encounter Visit Diagnoses Not on filedocumented in this encounter Care Teams Education Instructor Relationship Specialty Start Date End Date SwatiAugust Josiah, RUPALI [address] [place] [address] PCP - General 09/01/15 documented as of this encounter
--- OUTSIDE RECORDS SUMMARY | 2023-06-14 07:10 | XMS_ITS | Data Portability ---
Author Name Unknown Address [address] [place] [address] Phone [phone] Organization [facility], [facility] Address [address] [place] [address] Care Team Providers Care Cheese Sprayer Name Role Phone PILLO RUTLEDGE Primary Care Provider Assessment No assessment recorded. Plan of Treatment Reminders Order Date Submit Date Provider Last Modified By Organization Details Last Modified Time Details Appointments None recorded. Lab urinalysi s, dipstick 2020 021 [email or web address] Not available 15:20:49 Referral None recorded. Procedures bladder scan (PROC) 2020 021 [email or web address] Not available 15:20:49 Surgeries cystoscop y, hydrodila tion of bladder (SURG) 2021 022 Not available 17:41:42 cystoscop y (SURG) 2020 021 [email or web address] Not available 14:58:57 Imaging None recorded. Medication Orders None recorded. Patient TargetsNo targets recorded. Patient InstructionsNo instructions recorded. Reason for Referral None Reported. Results Created Date Observation Date Name Description Value Unit Range Abnormal Flag LastModifiedBy Organization Detail LastModifiedTime 08/23/2020 urina lysis , dipst ick pH-Status 5.5 Not Available [facility] [address], , [address], 08/23/2020 15:06:45 08/23/2020 urina lysis , dipst ick Nitrates-Sta tus negati ve Not Available [facility] [address], , [address], 08/23/2020 15:06:45 08/23/2020 urina lysis , dipst ick Blood-Status Trace Not Available [facility] [address], , [address], 08/23/2020 15:06:45 08/23/2020 urina lysis , dipst ick Leuko-Status Negati ve Not Available [facility] [address], , [address], 08/23/2020 15:06:45 08/24/19 21 08/23/2020 bladd er scan (PROC ) Volume (in mL) 23 ml Not Available [facility] [address], , [address], 08/23/2020 15:06:25 08/24/19 21 08/23/2020 bladd er scan (PROC ) No observ ation record ed. BARCODE Not Available 08/23/2020 17:50:45 Result Notes None recorded. Problems Name Status Onset Date Resolution Date Notes Provider Name and Address Organization Details Recorded Time Increased frequency of urination Active 020 R35.0 : Frequency of micturition Not Available [facility] 02:08:18 Chronic interstitial cystitis Active 020 N30.11 : Interstitial cystitis (chronic) with hematuria Not Available [facility] 0 02:08:18 Problem Notes None recorded. Procedures Surgical History Date Name Laterality Status Provider Name and Address Organization Details Recorded Time 09/01/19 22 Bladder Scan completed Yogi Charles MD [address], [place], [address], [place] [facility] 08/31/2021 15:06:21 09/16/19 21 CYSTOSCOPY (SURG) completed Yogi Charles MD [address], [place], [address], [facility] 09/19/2020 22:09:22 08/24/19 21 CystoscopyFemale completed Yogi Charles MD [address] [place] [address],[address], [place], [address], [facility] 08/23/2020 15:26:14 08/24/19 21 Bladder Scan completed Yogi Charles MD [address] [place] [address],[address], [place], [address], [facility] 08/23/2020 15:06:20 Imaging Results Imaging Date Name Status LastModified by Organiz ation Details LastModified Time 08/23/2020 bladder scan (PROC) completed BARCODE Information not available 08/23/2020 17:50:45 Procedure Notes None recorded. Medical Equipment None Reported. Allergies Allergen ID Allergen Name Allergen Category Reaction Reaction Severity Criticality Documentation Date Start Date Code Code System Note Provider Name and Address Organization Details Recorded Time [id number] cat dander environme nt Not available Not available Not available 08/23/2020 Yogi Charles MD [address] [place] [address],[address], [place], [address], [facility] 15:04:00 Medications Name Sig Start Date Stop Date Status Note LastModified by Organization Details LastModified Time amoxicillin 500 mg capsule TAKE 2 CAPSULES BY MOUTH 3 TIMES A DAY DIRECTED active Not Available Not Available Not Available ropinirole 1 mg tablet 1 TABLET BY MOUTH AT BEDTIME active Not Available Not Available No t Available fluconazole 150 mg tablet TAKE 1 TABLET BY MOUTH SINGLE DOSE DIRECTED , REPEAT IN 3 DAYS IF SYMPTOMS PERSIST active Not Available Not Available No t Available minocycline 100 mg capsule TAKE 1 CAPSULE BY MOUTH 2 TIMES DAILY. active Not Available Not Available No t Available prednisone 20 mg tablet TAKE 2 TABLETS BY MOUTH EVERY DAY FOR 5 DAYS active Not Available Not Available No t Available Elmiron 100 mg capsule TAKE 1 CAPSULE BY MOUTH EVERY DAY active Not Available Not Available No t Available hydroxyzine pamoate 50 mg capsule TAKE 1 CAPSULE BY MOUTH ONCE DAILY OR AT BEDTIME active Not Available Not Available No t Available ciprofloxaci n 500 mg tablet TAKE 1 TABLET (500 MG) BY MOUTH 2 TIMES DAILY FOR 4 DOSES active Not Available Not Available Not Available omeprazole 40 mg capsule,cait yed release TAKE 1 CAPSULE BY ORAL ROUTE EVERY DAY ONE HOUR BEFORE A MEAL. EVERYDAY FOR THE NEXT 3 MONTHS active Not Available Not Available No t Available triamcinolon e acetonide 0.1 % topical cream APPLY TO AFFECTED AREAS ON LEGS IN THE MORNING, THEN APPLY ONCE IN EVENING WITH WET DRESSINGS. active Not Available Not Available N ot Available cefadroxil 500 mg capsule active Not Available Not Available Not Available ropinirole 0.25 mg tablet TAKE 1 TABLET (0.25 MG) WITH YOUR 0.5 MG TABLETS AT 7:00 PM NIGHTLY active Not Available Not Available No t Available doxycycline monohydrate 100 mg capsule TAKE 1 CAPSULE BY MOUTH TWICE A DAY active Not Available Not Available No t Available cephalexin 500 mg capsule TAKE 1 CAPSULE BY MOUTH 4 TIMES A DAY FOR 7 DAYS. active Not Available Not Available Not Available triamcinolon e acetonide 0.1 % topical ointment PLEASE SEE ATTACHED FOR DETAILED DIRECTIONS active Not Available Not Available N ot Available ropinirole 0.5 mg tablet TAKE 1 TABLET BY MOUTH DAILY IN THE AFTERNOON active Not Available Not Available No t Available nystatin 100,000 unit/gram topical cream APPLY TO AFFECTED AREA TOPICALLY 2-3TIMES A DAY active Not Available Not Available No t Available gabapentin 300 mg capsule PLEASE SEE ATTACHED FOR DETAILED DIRECTIONS active Not Available Not Available N ot Available montelukast 10 mg tablet TAKE 1 TABLET BY MOUTH DAILY active Not Available Not Available Not Available mupirocin 2 % topical ointment APPLY A SMALL AMOUNT TO AFFECTED AREA THREE TIMES A DAY AFFECTED AREAS ON LEGS active Not Available Not Available No t Available azelastine 137 mcg (0.1 %) nasal spray aerosol USE 1 SPRAY IN EACH NOSTRIL TWICE A DAY active Not Available Not Available Not Available epinephrine 0.3 mg/0.3 mL injection, auto-injecto r INJECT 0.3 MLS (0.3 MG) INTO THE MUSCLE ONCE NEEDED FOR ANAPHYLAXIS active Not Available Not Available Not Available oxybutynin chloride 5 mg tablet TAKE 1 TABLET BY MOUTH TWICE A DAY NEEDED FOR URGENCY active Not Available Not Available No t Available fluticasone propionate 50 mcg/actuatio n nasal spray,suspen eliana SPRAY 2 SPRAYS INTRANASALL Y DAILY active Not Available Not Available No t Available hydroxyzine pamoate 25 mg capsule TAKE 1 TO 2 CAPSULES BY MOUTH AT BEDTIMES NEEDED active Not Available Not Available No t Available BinaxNOW COVID-19 Ag Self Test kit FOLLOW INSTRUCTION S INCLUDED WITH THE PACKAGE. active Not Available Not Available No t Available Paxlovid 300 mg (150 mg x 2)-100 mg tablets in a dose pack TAKE 2 TABLETS (NIRMATRELV IR) AND TAKE 1 TABLET (RITONAVIR) BY MOUTH TWICE A DAY FOR 5 DAYS active Not Available Not Available N ot Available Vitals Date Recorded Body height Body mass index (BMI) Body weight Provider Name and Address Organization Details Last Updated DateTime 08/23/2020 162.56 cm 34.3 kg/m2 73285.47 g Yogi Charles MD [address] [place], [place] [address] [place] [address] [facility]rolog 08/23/2020 15:03:43 Date Recorded Body height Body mass index (BMI) Body weight Provider Name and Address Organization Details Last Updated DateTime 08/31/2021 162.56 cm 34.3 kg/m2 22936.47 stephanie Charles MD [address] [place], [place] [address], [facility] 08/31/2021 15:04:07 Social History Question Answer Notes LastModified by Organizat ion Details LastModified Time Tobacco Smoking Status Never Smoker Yogi Charles MD [address] [place] [address], [address], [facility] 08/23/2020 15:04:47 What Is Your Level Of Alcohol Consumption? Occasional Information not available 08/23/2020 What Is Your Level Of Caffeine Consumption? Occasional Information not available 08/23/2020 How Much Tobacco Do You Chew? None Information not available 08/23/2020 Do You Or Have You Ever Used E-cigarettes Or Vape? Never Used Electronic Cigarettes Information not available 08/23/2020 Ethnicity Not /Latin o Information not available 08/23/2020 Preferred Language South African Information not available 08/23/2020 Number Of Pregnancies 2 Information not available 08/23/2020 Number Of Vaginal Deliveries 2 Information not available 08/23/2020 Recreational Drug Use No Information not available 08/23/2020 Could You Be ? No Information not available 08/23/2020 Marital Status [email or web address] Informatio n not available 08/23/2020 What Was The Date Of Your Most Recent Tobacco Screening? 08/23/2020 Information not available 08/23/2020 Are You Sexually Active? Yes Information not available 08/23/2020 Do You Or Have You Ever Used Smokeless Tobacco? Never Used Smokeless Tobacco Information not available 08/23/2020 How Much Tobacco Do You Smoke? No Information not available 08/23/2020 How Many Years Have You Smoked Tobacco? 0 Information not available 08/23/2020 Sex: Female Functional Status None recorded. Mental Status None recorded. Family History Nothing Reported. Medical History Condition Response Sexually Transmitted Infection N Diabetes N Bleeding Disorder N High Blood Pressure N Kidney Stones N Cancer N Lung Disease N Depression N High Cholesterol N GERD/Acid Reflux N Heart Disease N Gynecological History Statement/Question Response Irregular periods N Leaking urine with intercourse N Hormone Therapy N Heavy periods N Pain with intercourse N Sexually Active? Y Obstetrics History GPAL:G 2 P 0 0 0 2 Type Value Living 2 Total 2 Past Encounters Encounter ID Performer Location Encounter Start Date Encounter Closed Date Diagnosis/Indication [id number] Yogi Charles MD [facility] [address] [place] [address] 08/23/2020 14:33:23 08/24/2020 12:10:03 Chronic interstitial cystitis [id number] Yogi Charles MD [facility] [address] [place] [address] 08/31/2021 14:42:09 09/04/2021 11:33:14 Chronic interstitial cystitis Health Concerns Section Related Observation LastModified by Organization Detai ls LastModified Time None Recorded Concern Status LastModified by Organization Details LastModified Time None Recorded Advance Directives Directive None Recorded Payers Encounter Date Sequence Insurance Name Policy Number Policy Ness Covered Member ID Ness Member ID Guarantor Name 08/31/2021 1 [employer] [id number] Aleida Brooke [id number] Aleida Briggs Edwardo 08/23/2020 1 [employer] [id number] Aleida Brooke [id number] Aleida Brooke Notes Date Note Type Note Provider Name and Address Organization Details Recorded Time 08/23/2020 text/html HPI Notes: She i s followed for IC; s/p biopsy in 06/[facility]; got better for almost one year. CUrrently her symptoms are back : urgency and frequency are back; ditropan does not help now. Cysto showed 3 ulcers at the back bladder wall. 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 She has same urgency Q 20 mins and frequency and painful urination. She tried elmiron and multiple meds in the past. She tried ditropan/myrbetri q and elmiron but developed side effects. Yogi Charles MD [address] [place] [address],[address], [place], [address], [facility] 08/31/2021 15:14:44 OBGyn Episode No OBEpisode recorded.
--- OUTSIDE RECORDS SUMMARY | 2023-06-14 07:10 | XMS_ITS | Encounter Summary ---
Author Name Unknown Organization [facility] Address [address] [place] [address] Care Team Providers Care Ditch Repairer Name Role Phone yNla Longoria RUPALI Primary Care Provider [phone] Reason for Referral * Consult/Transfer Care (Routine) - New Request Specialty Diagnoses / Procedures Referred By Sherri spivey Referred To Contact Diagnoses Basal cell carcinoma of face Nannette Rae MD [address] [place] [address] Referral ID Status Reason Start Date Expiration Date V isits Requested Visits Authorized [id number] New Request 04/01/2023 06/30/2024 1 1 Scheduling Instructions Your clinician has recommended an appointment with [facility]. You may call [phone] to schedule your appointment. This recommended service/s may not be covered by your insurance coverage. To find out your specific benefit coverage, please call the number on your insurance card. Question Answer Appointment Urgency? Non-Urgent Patient's preferred locations? [facility] Reason for Visit * Reason Comments Referral Mohs - BCC Encounter Details Date Type Department Care Team Description 04/01/2023 Telephone [facility] [address] [place] [address] Nannette Rae MD [address] [place], [place] [id number] Referral (Mohs - [facility] ) Social History Tobacco Use Types Packs/Day Years Used Date Smoking Tobacco: Never Smokeless Tobacco: Never Sex and Gender Information Value Date Recorded Sex Assigned at Not on file Gender Identity Not on file Sexual Orientation Not on file documented as of this encounter Nursing Notes * Amber Parker - 04/16/2023 3:48 PM CST Scheduled Mohs 1.0 on 05/07 with LR in [facility] * Dali Love MA - 04/04/2023 1:18 PM CST sent to patient to schedule surgery. [facility] * Dali Love MA - 04/02/2023 6:55 AM CST Mohs 1.0 if with LR Pt requesting [facility] * Maritza Betancourt LPN - 04/01/2023 4:54 PM CST Images from the original note were not included. Mohs / Derm Surg Referral Site 1: Site 2: Site 3: Site 4: Site Right Forehead, Diagnosis Nodular basal cell carcinoma, present at deep biopsy margin. Size (optional) <1 cm 1-2 cm >2 cm Special Considerations for this site Photos (Copy & Paste or type No Photo): How was pt informed? (ex: left msg, spoke with pt): spoke Home address : [facility] [address] Is this the patient's first derm surg referral?: no Best Number/Person to Call: Telephone Information: Work Phone Not on file. Remember, if contacting someone besides the pt, make sure we have a verbal disclosure on file for that person. Notes (such as mobility requirements, preferred surgeon or location, scheduling considerations, etc.): [facility] documented in this encounter Plan of Treatment Upcoming Encounters Date Type Department Care Team Description 06/26/2023 2:30 PM [facility] Appointment [facility] [address] [place] [address] Nurse Kobi Uribe Scheduled Referrals Name Type Priority Associated Diagnoses Orde r Schedule Dermatology Surgery/Mohs Consult Adult Referral Routine Basal cell carcinoma of face Ordered: 04/01/2023 documented as of this encounter Visit Diagnoses Diagnosis Basal cell carcinoma of face- Primary Basal cell carcinoma of skin of other and unspecified parts of face documented in this encounter Care Teams Ditch Repairer Relationship Specialty Start Date End Date SwatiAugust Josiah, RUPALI [address] [facility] [place] [address] PCP - General 09/01/15 documented as of this encounter
--- OUTSIDE RECORDS SUMMARY | 2023-06-14 07:10 | XMS_ITS | Encounter Summary ---
Author Name Unknown Organization [facility] Address [address] [facility] [place] [address] Care Team Providers Care Developer Architect Name Role Phone Nyla Longoria RUPALI Primary Care Provider [phone]- [phone] Reason for Visit * Reason Comments Knee Problem * Therapies (Routine) - New Request Specialty Diagnoses / Procedures Referred By Sherri spivey Referred To Contact Diagnoses Acute pain of right knee Kelli Leger, DO [address] [address] Referral ID Status Reason Start Date Expiration Date V isits Requested Visits Authorized [id number] New Request 08/27/2022 08/27/[phone] Encounter Details Date Type Department Care Team Description 08/27/2022 10:00 AM CDT Office Visit [facility] [address] [place] [address] [place] [address] [place], [place] [phone] Chronic pain of right knee (Primary Dx) Social History Tobacco Use Types Packs/Day Years Used Date Smoking Tobacco: Never Smokeless Tobacco: Never Sex and Gender Information Value Date Recorded Sex Assigned at Not on file Gender Identity Not on file Sexual Orientation Not on file documented as of this encounter Progress Notes * Oscar Whitley, PT - 08/27/2022 10:00 AM CDT [facility] Physical Therapy Knee Evaluation/Plan of Care Initial Certification Period: 08/27/2022 to 11/25/22 Referring Provider: KELLI LEGER Visit Diagnosis: 1. Chronic pain of right knee Precautions: None reported Orders: Evaluate & treat Onset/Referral Date: 08/27/2022 SUBJECTIVE Reason for Visit: Aleida Brooke presents to [facility] with complaints of R knee pain, located on the inside and back side of the knee and began 4 weeks ago. Did a [address] with her son to buy a boat. Got out after that and the knee was stiff and sore. tendon are really tight and the middle side of the knee is tight. Feels like the tendons need to loosen knee. Prior issues with meniscus and arthritis on the L knee. Was trying to find her prior PT stuff for the L knee to start on the R. Walking it can be painful, if she sits for about 10 minutes, she can limp. 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 When she gets moving, it loosens up and feels good. Denies num bness and tingling, more just pain. Denies catching or locking. If she straightens out to far it feels stiff, not locking. Pain today is 4/10, and worst pain is 9/10 with sleeping the last few nights. Taking ibuprofen every 8 hours, but not helping her pain. Goals for PT are to feel better. Work/Leisure/Sport: special education in [place] Patient Therapy Goals:Resume previous level of activity symptom free. Past Medical History: Patient has a current medication list which includes the following prescription(s): cetirizine, cholecalciferol, fluorouracil, fluticasone propionate, gabapentin, ketotifen fumarate, ropinirole, and triamcinolone acetonide. Patient has no past medical history on file. Recently Experienced (Red Flags): None Previous Treatment: None Benefited from previous treatment: not applicable Pain details: Current pain intensity level: 4/10 Worst: 9/10 Additional Symptoms: None reported Aggravating factors:going up and down stairs, standing, walking, running, squatting, kneeling, pivoting, and lateral movements Relieving factors: Icing, Medication, and Restriction of activity Patient History: Moderate Complexity: 1-2 personal factors and/or comorbidities that impact plan of care: L knee pain OBJECTIVE Observation: Left: overweight Right: overweight Gait Exam: Antalgic, Decreased heel strike, Decreased terminal knee extension, and Trendelenberg Edema:None Screening: Hip Screen: Within Normal Limits, NIRANJAN and FADIR pressure slightly bothersome for knee Ankle Screen: Within Normal Limits ROM: AROM Bilateral normal Bilateral equal Strength: Left: Knee Flexion: 5/5 Knee Extension: 5/5 Hip Abduction: 4/5 Right: Knee Flexion: 4/5 Knee Extension: 5/5 Hip Abduction: 4/5 Joint Mobility: Right: Tibiofemoral WNL Palpation: Right tender: Medial joint line, Popliteal fossa, Medial hamstring, Pes anserinus Special Tests: Not tested Proprioception: Single leg stance: 10 seconds Functional Tests: Double leg squat: good depth, bothersome Heel walk - WNL Toe walk - WNL, painful on R Flexibility: Hamstrings: Normal Core Strength: Not tested No outcome data collected. Clinical Examination: Moderate Complexity: Addressed 3 elements from body structures and functions (see above), and/or functional limitations as noted below. Today's Intervention/Charges: Physical Therapy Evaluation was completed and the patient was educated on the condition, planned therapy intervention and expectations from treatment. Therapeutic exercise x 12 minutes: Patient was provided with a home exercise program. Patient was given verbal, visual, and tactile cues for exercise performance. Expressed optimism for patients R knee pain, and that PT is the right place for them and that this will get better with time. Educated that PT has seen this before and that with some hard work patient will get back to their active lifestyle in no time. Encouraged patient to remain active. Heel cord isometric on step - double leg to single leg to up with 2, down with 1 - well tolerated, settled on heel cord eccentric 1x15 - cues for technique Supine hamstring bridge 2x10 - improved pain with walking following Standing single leg RDL with mat support 1x10 R - cues for technique Wall squat 1x15 - cues for technique - improved pain walking following Therapeutic activities x 8 minutes: Patient educated on how weight management includes collaborating with their physician(s), maternity nurse and dieticians and that weight loss should include both diet and exercise changes so pts do notlose lean muscle mass or bone density (especially older adults) from PT scope. Discussed change in weight of 10% body mass or 15# can drop knee pain. Education/Handouts: Diagnosis Education Timed Code Treatment Minutes: 20 Total Treatment Minutes: 37 Home Program/[place]: Access Code: [email or web address] URL: [email or web address] Date: 08/27/2022 Prepared by: Oscar Whitley Exercises - Eccentric Heel Lowering on Step - 2-3 x daily - 5 x weekly - 1 sets - 10-20 reps - slow and controlled speed - 90/90 Double Leg Hamstring Bridge at Bench (Run) - 2-3 x daily - 5 x weekly - 1 sets - 10-20 reps- slow and controlled speed - Forward T with Counter Support - 2-3 x daily - 5 x weekly - 1 sets - 10-20 reps - slow and controlled speed - Wall Quarter Squat - 2-3 x daily - 5 x weekly - 1 sets - 10-20 reps - slow and controlled speed ASSESSMENT Therapist Impression/Summary: Patient demonstrates loss of range of motion, strength, proprioception, increased swelling, that is limiting ability to participate in her active lifestyle. Patient would benefit from additional physical therapy to address deficits to facilitate return to prior level of function and improve quality of life. PT Clinical Presentation: Low Complexity: Stable and Uncomplicated Clinical Decision Making: Low Complexity Recommendations/Equipment: No additional recommendations at this time Significant Impairments: Pain, Muscle tightness/decreased flexibility, Muscle atrophy, Muscle weakness, Muscular imbalances, Proprioception deficits, Postural restrictions, Hyperalgesia Functional Limitations: poor body mechanics, difficulty dressing, difficulty with household tasks, difficulty meeting work demands, difficulty with sports/leisure activities, difficulty with gait, and difficulty with stairs Goals/Functional Outcomes: HEP/Independent Management: Demonstrate independence with HEP and self- management following each treatment session ADL's: Resume previous sleep pattern without awakening due to symptoms in 4-6 weeks. Perform home management tasks with ease in 8-12 weeks. Squat to picker tender items from floor with minimal/no symptoms in 4-8 weeks. Ambulation: Ambulate unlimited distances with minimal to no symptoms/limp in 8- 12 weeks. Ascend/descend stairs independently with reciprocal pattern with minimal to no symptoms and improved lower extremity alignment in 4-6 weeks. Barriers to Goal Achievement or Learning: none Prognosis: Good PLAN Planned Intervention/Education: ADL/Self Management, Aquatic therapy, Dry Needling, Education, Electrical Stimulation, Gait training, Heat/ice, Iontophoresis with Dexamethasone Sodium Phosphate 4 mg/mL solution prn with procedure to reduce inflammation. Deliver 1.0mL-1.5mL through iontophoresis patc h to affected area., Manual Therapy, Neuromuscular Re-education, Orthotics, TENS application/self treatment, Therapeutic Activities, Therapeutic Exercise, Ultrasound, Vasopneumatic compression Frequency: 1 x week Duration: 90 days Discharge Plan: Patient will be discharged from therapy when goals are achieved or patient plateausin progress. Informed Consent: Patient and/or family in agreement with the care plan. Plan for Next Treatment: loading as tolerated, manual therapy as needed The time recorder is completed by the therapist and the referring clinician's electronic signature certifies medical necessity for the plan above. documented in this encounter Plan of Treatment Upcoming Encounters Date Type Department Care Team Description 06/26/2023 2:30 PM MAKE UP GIRL Appointment [facility] [address] [place] [id number] Nurse Kobi Uribe Scheduled Referrals Name Type Priority Associated Diagnoses Orde r Schedule Physical Therapy Referral Routine Acute pain of right knee Ordered: 08/27/2022 documented as of this encounter Visit Diagnoses Diagnosis Chronic pain of right knee- Primary documented in this encounter Care Teams Developer Architect Relationship Specialty Start Date End Date SwatiAugust RUPALI Rahman [address] [place] [address] PCP - General 09/01/15 documented as of this encounter
--- OUTSIDE RECORDS SUMMARY | 2023-06-14 07:10 | XMS_ITS | Encounter Summary ---
Author Name Unknown Organization [facility] Address [address] [place] [address] Care Team Providers Care Boom Stick Worker Name Role Phone Nyla Longoria RUPALI Primary Care Provider [phone]- [phone] Reason for Visit * Reason Comments Skin Exam Full Body Skin Cance r Screening Denies any new spots that are tender, bleeding, rapidly growing or nonhealing at this time hx:BCC Encounter Details Date Type Department Care Team Description 03/26/2023 3:00 PM CHARTERED FINANCIAL ANALYST Office Visit [facility] [address] [place] [address] Nannette Rae MD [address] [place] [id number] Skin exam, screening for cancer (Primary Dx); Sun-damaged skin; History of basal cell carcinoma; Solar lentigo; Multiple melanocytic nevi; Wallace angioma; Seborrheic keratosis; Neoplasm of skin (HRC); Angular cheilitis; Seborrheic dermatitis Social History Tobacco Use Types Packs/Day Years Used Date Smoking Tobacco: Never Smokeless Tobacco: Never Sex and Gender Information Value Date Recorded Sex Assigned at Not on file Gender Identity Not on file Sexual Orientation Not on file documented as of this encounter Patient Instructions * Patient Instructions* Maritza Betancourt, DANA - 03/26/2023 3:00 PM CHARTERED FINANCIAL ANALYST Apply Vaseline to lips/mouth area before bed and as needed throughout the day. Apply the Triamcinolone acetonide (Kenalog) 0.1% ointment as needed for irritation Care Instructions after a shave skin biopsy/removal When do I start changing the bandage on my wound site? Leave the original bandage/dressing in place for 24 to 48 hours. If you develop bleeding from the site, apply firm pressure directly over the bandage, using the heel of your hand, for [address] bandage on top of the first one - don't keep removing and replacing dressings. NO PEEKING! Notify us if the bleeding still does not stop. How do I change the bandage on my wound? Clean the area once a day with warm soap and water. Gently pat dry the area. After the area has been cleaned and is dry, apply a small amount of petroleum jelly or Aquaphor healing ointment and apply a new bandage. We prefer that you do not use an antibacterial ointment (i.e. bacitracin, Neosporin) as many peopledevelop a hypersensitivity including a rash and even blistering related to these. Is it okay to shower after having a skin biopsy/removal? Showering is okay, but please do not soak in a bathtub, hot tub, or pool. This will slow the healing process and may create infection. When can I stop bandaging my wound? Continue the wound care process until the area is healed. Complete healing usually takes 2-4 weeks.Wounds heal best when kept moist, try not to let the area dry out. During this process you may see a white film develop over your wound and this is part of the normal healing process. Letting them open to air, drying out, and having a scab form actually causes wounds to take longer to heal. If yourskin is getting sensitive to the bandage, use gauze and paper tape. Can I exercise after having a skin biopsy/removal? Avoid exercising for 2 days. What signs or symptoms should I call the dermatology department about? Infection after a biopsy is not likely, but can occur. Mild amounts of redness, bruising, swelling,discomfort and a clear to yellowish to blood-tinged discharge are normal. Signs of Infection include: fever, increasing pain, blood blister, drainage of pus, and extreme heat from the site. Please call the clinic if you experience any of these symptoms. When will I receive my skin biopsy/removal results? Your skin biopsy specimen will be sent to our laboratory for processing. Your clinician will contact you with the results of this pathology report when it is available. Typically you will be contacted 7 to 14 days after your biopsy or procedure. Our pathology services will be listed separately on your bill. If you have further questions about the biopsy process or if you have not received your biopsy results within 2 weeks, please call the clinic. TERED FINANCIAL ANALYST documented in this encounter Progress Notes * Nannette Rae MD - 03/26/2023 3:00 PM CST Images from the original note were not included. DERMATOLOGY OFFICE VISIT Last visit: 03/2022 Dermatologic History: BCC, left upper inner cheek, Mohs 2017 History of bullous eruption on the bilateral lower shins, suspect allergic contact dermatitis Angular cheilitis Seborrheic dermatitis, mild Chief Complaint Patient presents with Skin Exam Full Body Skin Cancer Screening Denies any new spots that are tender, bleeding, rapidly growing or nonhealing at this time hx:BCC History of Present Illness: Aleida Brooke is a 48 y.o. female who presents for a full body skin exam today. I last saw her March of 2022, at which time I prescribed triamcinolone ointment and clotrimazole cream [id number] to be mixed in a one-to-one ratio and applied twice daily for angular cheilitis. She has a history of one BCC, as above. Today, reports one pink bump on her right lower forehead that has been present for a few months. Does not bleed, but never seems to come to a head and is not resolving. Reports that she is still occasionally using the triamcinolone and clotrimazole cream combo for herangular cheilitis, continues to help. Past Medical History, Family History: Reviewed and updated in [facility] Medications: The patient has a current medication list which includes the following prescription(s): cetirizine,cholecalciferol, fluorouracil, fluticasone propionate, gabapentin, ketotifen fumarate, ropinirole, and triamcinolone acetonide. Allergies: The patient is allergic to other. Review of Systems: Generally feels well without other skin concerns today. Physical Examination: General: Well-appearing female, in no distress, alert and oriented. Skin: Full body skin exam performed including the scalp, face, ears, eyelids, neck, abdomen, chest,back, buttocks, bilateral upper and lower extremities. Did not examine genitals. Pertinent findings as below. Exam otherwise was normal. Derm exam, Assessment and Plan: 1. Skin exam, screening for cancer 2. Sun-damaged skin - Reviewed risk factors for melanoma and nonmelanoma skin cancers - ABCDEs reviewed in clinic and in AVS - Recommended SPF 30+ sunscreen every day and sun protective clothing 3. History of basal cell carcinoma Well healed scar with no evidence of recurrence noted. Reassurance provided 4. Solar lentigo Noble macules in sun-exposed areas. No clinical outliers noted Reassurance provided 5. Multiple melanocytic nevi - Scattered 3-5 mm uniformly colored, bland, symmetrical brown macules and papules on trunk, arms, and legs Benign, reassured. 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 7. Seborrheic keratosis Scattered noble to brown, stuck-on, waxy papules noted to the anterior/posterior torso, arms, legs Benign, reassured. 8. Neoplasm of skin (HRC) Right Forehead 4mm pink shiny papule Skin Biopsy (No CPT) Type of biopsy: tangential Informed consent: discussed and consent obtained Timeout: patient name, date of , surgical site, and procedure verified Procedure prep: Patient was prepped and draped in usual sterile fashion Prep type: Isopropyl alcohol Anesthesia: the lesion was anesthetized in a standard fashion Anesthetic: 1% lidocaine w/ epinephrine 1-100,000 local infiltration Instrument used: flexible razor blade Hemostasis achieved with: electrodesiccation Outcome: patient tolerated procedure well Post-procedure details: wound care instructions given Specimen 1 - Surgical Path, Dermatology Clinical Impression: r/o BCC 9. Angular cheilitis There is a very thin light pink scaly papule in the right angular commissure Clinical impression reviewed. Recommend that she treat with Vaseline when clear and continue occasional use of triamcinolone and clotrimazole mixture as needed for flare. Related Medications triamcinolone acetonide (KENALOG) 0.1 % ointment Mix 1:1 with clotrimazole cream (OTC) and apply to corners of mouth twice daily for flares. Max 2 weeks Follow up: Return to clinic pending biopsy results, sooner for new concerns. Nannette Rae MD [facility] TERED FINANCIAL ANALYST documented in this encounter Plan of Treatment Upcoming Encounters Date Type Department Care Team Description 06/26/2023 2:30 PM CHARTERED FINANCIAL ANALYST Appointment [facility] [address] [place] [address] Nurse Kobi Uribe documented as of this encounter Procedures Procedure Name Priority Date/Time Associated Diagnosis Comments SKIN BIOPSY Routine 03/26/2023 3:31 PM CHARTERED FINANCIAL ANALYST Neoplasm of skin (HRC) SURGICAL PATHOLOGY, DERMATOLOGY Routine 03/26/2023 3:31 PM CHARTERED FINANCIAL ANALYST Neoplasm of skin (HRC) documented in this encounter Results * Skin Biopsy (No CPT) (03/26/2023 3:31 PM CHARTERED FINANCIAL ANALYST) Narrative EXTERNAL RESULTS - 03/26/2023 3:31 PM CHARTERED FINANCIAL ANALYST Type of biopsy: tangential ?? Informed consent: discussed and consent obtained ?? Timeout: patient name, date of , surgical site, and procedure verified ?? Procedure prep: ??Patient was prepped and draped in usual sterile fashion Prep type: ??Isopropyl alcohol Anesthesia: the lesion was anesthetized in a standard fashion ?? Anesthetic: ??1% lidocaine w/ epinephrine 1-100,000 local infiltration Instrument used: flexible razor blade ?? Hemostasis achieved with: electrodesiccation ?? Outcome: patient tolerated procedure well ?? Post-procedure details: wound care instructions given ?? Nannette Rae MD DERM PROCEDURE ORDER CANDACE EXTERNAL RESULTS * Surgical Path, Dermatology (03/26/2023 3:31 PM CHARTERED FINANCIAL ANALYST) Case Report Surgical Pathology Report ? Case: [id number] ? Authorizing Provider: ??Nannette Rae MD ? Collected: ? 03/26/2023 1531 ? Ordering Location: ? [facility] ? Received: ?03/27/2023 0716 ? Pathologist: ? Christian Delgado MD ? Specimen: ?Skin, Right Forehead ? 04/01/2023 1:02 PM CHARTERED FINANCIAL ANALYST NURSE TRANSPL[facility]00 DERMATOLOGY FINAL DIAGNOSIS A. Skin, Right Forehead, shave: - Nodular basal cell carcinoma, present at deep biopsy margin. 04/01/2023 1:02 PM CHARTERED FINANCIAL ANALYST NURSE TRANS[facility]00 DERMATOLOGY Clinical Information Clinical Impression: r/o BCC 04/01/2023 1:02 PM CHARTERED FINANCIAL ANALYST NURSE TRANSPL[facility]00 DERMATOLOGY Microscopic Description Microscopic examination is performed. 04/01/2023 1:02 PM [facility] DERMATOLOGY Technical Information A portion of the technical [place] [address]. The professional interpretation was performed at [facility]. 04/01/2023 1:02 PM [facility] NURSE TRANSPLANT 3800 DERMATOLOGY Gross Description A: Received in formalin, labeled with the patient's name and Skin, Right Forehead is a 7 x 5 x 1 mm shave biopsy of skin. The specimen is marked with purple ink, bisected, and submitted entirely in one cassette. TV 04/01/2023 1:02 PM [facility] NURSE TRANSPLANT 3800 DERMATOLOGY Embedded Images 04/01/2023 1:02 PM [facility] 3800 DERMATOLOGY Skin (Skin) 03/26/2023 3:31 PM CHARTERED FINANCIAL ANALYST 03/27/2023 7:16 AM CHARTERED FINANCIAL ANALYST Comment:Clinical Impression: r/o BCC Nannette Rae MD LAB PATHOLOGY Performing Organization Address City/State/[facility] Co de Phone Number [facility] [address] [place] [id number] [address] documented in this encounter Visit Diagnoses Diagnosis Skin exam, screening for cancer- Primary Screening for malignant neoplasm of the skin Sun-damaged skin Other chronic dermatitis due to solar radiation History of basal cell carcinoma Personal history of other malignant neoplasm of skin Solar lentigo Other dyschromia Multiple melanocytic nevi Wallace angioma Nevus, non-neoplastic Seborrheic keratosis Other seborrheic keratosis Neoplasm of skin (HRC) Neoplasm of unspecified nature of bone, soft tissue, and skin Angular cheilitis Diseases of lips Seborrheic dermatitis Seborrheic dermatitis, unspecified documented in this encounter Care Teams Boom Stick Worker Relationship Specialty Start Date End Date Swati August RUPALI Rahman [address] [place] [address] PCP - General 09/01/15 documented as of this encounter
--- OUTSIDE RECORDS SUMMARY | 2023-06-14 07:10 | XMS_ITS | Encounter Summary ---
Author Name Unknown Organization [facility] Address [address] [place] [address] Care Team Providers Care Waiter/Waitress First Class Name Role Phone Swati August RUPALI Primary Care Provider +1- [phone] Reason for Visit * Reason Comments Follow-up, NOS Entered automaticall y based on patient selection in [employer]. Encounter Details Date Type Department Care Team Description 04/02/2023 11:30 AM COMMERCIAL FISHERMAN E-Visit [facility] [address] [place] [address] Nannette Rae MD [address] [place] [phone] Chief Comp: Follow-up, NOS Social History Tobacco Use Types Packs/Day Years Used Date Smoking Tobacco: Never Smokeless Tobacco: Never Sex and Gender Information Value Date Recorded Sex Assigned at Not on file Gender Identity Not on file Sexual Orientation Not on file documented as of this encounter Plan of Treatment Upcoming Encounters Date Type Department Care Team Description 06/26/2023 2:30 PM COMMERCIAL FISHERMAN Appointment [facility] [address] [place] [address] Nurse Kobi Uribe documented as of this encounter Visit Diagnoses Not on filedocumented in this encounter Care Teams Waiter/Waitress First Class Relationship Specialty Start Date End Date Swati August, RUPALI [address] [place], [place] [id number] PCP - General 09/01/15 documented as of this encounter
--- NOTE | 2023-06-14 08:07 | W.ANESCHARGE ---
Anesthesia Charges Start Date/Time Anesthesia Start Date: 06/14/23 Anesthesia Start Time: 07:45 Stop Date/Time Anesthesia Stop Date: 06/14/23 Anesthesia Stop Time: 08:06
--- NOTE | 2023-06-14 08:11 | W.ANESCHARGE ---
Anesthesia Charges Start Date/Time Anesthesia Start Date: 06/14/23 Anesthesia Start Time: 07:45 Stop Date/Time Anesthesia Stop Date: 06/14/23 Anesthesia Stop Time: 08:06
== END 2023-06-14 07:07 | disposition home or self-care (01) ==
LOC: OP CLINIC 07:07
PROVIDERS: PCP Physician Assistant Medical; Visit Provider Internal Medicine
DX: Z12.11 Encounter for screening for malignant neoplasm of colon (principal)
CPT/HCPCS: 00811; 00812; 45378; J2704

== ENCOUNTER 2023-07-11 13:51 | Outpatient (CLI) | payer OTHER, SELFPAY ==
--- NOTE | 2023-07-11 14:00 | MM_ITS ---
Patient: ROSLYN JAMES Facility:?[facility] Patient ID:?[id number] Site Patient ID:?[id number]. Site :?[id number] Study:?XRay-Breast Bilateral 3D W/CAD-07/11/2023 2:22:03 PM Ordering Physician:Calos August Final Report: BILATERAL SCREENING MAMMOGRAM WITH COMPUTER-AIDED DETECTION AND TOMOSYNTHESIS TECHNIQUE: CC and MLO views were obtained. These mammographic images have been obtained using full-field digital technique. These mammographic images were interpreted with the benefit of computer-aided detection. Breast Tomosynthesis was used in this interpretation. COMPARISON FILM: 06/05/21, 06/03/20, 06/02/19. FINDINGS: There are scattered areas of fibroglandular density. IMPRESSION: There is no radiographic evidence for malignancy. ASSESSMENT: BI-RADS Category 1: Negative RECOMMENDATION: Routine screening mammogram in 1 year. A lay language report of this examination will be provided to the patient. Marcial Ortez M.D. Diagnostic Radiologist [email or web address] DSM/sp R& Transcribed: 2:44 p.m. SP/Dictated by: Marcial Ortez MD @ 07/12/2023 12:59:00 PM Signed by:?Marcial Ortez MD @07/12/2023 3:03:53 PM (Electronic Signature)
== END 2023-07-11 13:52 | disposition home or self-care (01) ==
LOC: MAMMO 13:52
PROVIDERS: PCP Physician Assistant Medical; Visit Provider Physician Assistant
DX: Z12.31 Encounter for screening mammogram for malignant neoplasm of breast (principal)
CPT/HCPCS: 77063; 77067

== ENCOUNTER 2023-09-02 10:51 | Outpatient (CLI) | payer OTHER, SELFPAY | END 2023-09-02 10:52 | disposition home or self-care (01) | PROVIDERS: PCP Physician Assistant Medical; Visit Provider Physician Assistant Medical | DX: K76.0 Fatty (change of) liver, not elsewhere classified (principal) | CPT/HCPCS: 84450; 84460 ==

== ENCOUNTER 2024-06-17 07:37 | Outpatient (CLI) | payer OTHER, SELFPAY | END 2024-06-17 07:38 | disposition home or self-care (01) | LOC: NFLDREF 06-22 03:01 | PROVIDERS: PCP Physician Assistant Medical; Referring Provider Physician Assistant Medical; Visit Provider Physician Assistant Medical | DX: R73.03 Prediabetes (principal); Z13.220 Encounter for screening for lipoid disorders; Z13.29 Encounter for screening for other suspected endocrine disorder | CPT/HCPCS: 80053; 80061; 84443 ==

== ENCOUNTER 2024-08-18 15:26 | Outpatient (CLI) | payer OTHER, SELFPAY ==
--- NOTE | 2024-08-18 15:40 | CRLHL7_ITS ---
For Patients: As a result of the Century Cures Act, medical imaging exams and procedure reports are released immediately into your electronic medical record. You may view this report before your referring provider. If you have questions, please contact your health care provider. BILATERAL SCREENING MAMMOGRAM WITH COMPUTER-AIDED DETECTION AND TOMOSYNTHESIS TECHNIQUE: CC and MLO views were obtained. These mammographic images have been obtained using full-field digital technique. These mammographic images were interpreted with the benefit of computer-aided detection. Breast Tomosynthesis was used in this interpretation. COMPARISON FILM: 07/11/23, 06/05/21, 06/03/20. FINDINGS: The breasts are heterogeneously dense, which may obscure small masses. IMPRESSION: There is no radiographic evidence for malignancy. ASSESSMENT: BI-RADS Category 2: Benign RECOMMENDATION: Routine screening mammogram in 1 year. A lay language report of this examination will be provided to the patient. Marcial Ortez M.D. Diagnostic Radiologist [email or web address] SP/Dictated by: Marcial Ortez MD @ 08/19/2024 10:37:00 AM (Electronically Signed)
== END 2024-08-18 15:27 | disposition home or self-care (01) ==
LOC: MAMMO 15:26
PROVIDERS: PCP Physician Assistant Medical; Visit Provider Physician Assistant Medical
DX: Z12.31 Encounter for screening mammogram for malignant neoplasm of breast (principal); R92.333 Mammographic heterogeneous density, bilateral breasts
CPT/HCPCS: 77063; 77067

== ENCOUNTER 2025-05-07 10:25 | Outpatient (CLI) | payer OTHER, SELFPAY ==
[2025-05-07 10:43] LABS: Trichomonas No Trichomonas Seen (None Seen)
== END 2025-05-07 10:26 | disposition home or self-care (01) ==
LOC: FRMREF 10:25
PROVIDERS: PCP Physician Assistant Medical; Visit Provider Nurse Practitioner Family
DX: N89.8 Other specified noninflammatory disorders of vagina (principal)
CPT/HCPCS: 87086; 87210